=== PATIENT | male | born 1950 | race African-American/Black ===

== ENCOUNTER 2017-08-17 08:05 | Inpatient (IN) | payer MEDICARE, OTHER ==
[2017-08-17 08:51] LABS: ADD MAN DIFF? NO
[2017-08-17 08:56] LABS: BASOPHILS % 0.4 % (0.0-2.0); EOSINOPHILS # 0.2 10^3/ul (0.0-0.5); EOSINOPHILS % 2.4 % (0.0-7.0); HEMATOCRIT 34.8 % (42.0-52.0); HEMOGLOBIN 11.6 g/dl (14.0-18.0); LYMPHOCYTES # 1.4 10^3/ul (0.8-2.9); MEAN CORPUSCULAR HEMOGLOBIN 26.5 pg (29.0-33.0); MEAN CORPUSCULAR HGB CONC 33.3 g/dl (32.0-37.0); MEAN CORPUSCULAR VOLUME 79.6 fl (82.0-101.0); MONOCYTE # 0.5 10^3/ul (0.3-0.9); MONOCYTES % 7.5 % (0.0-11.0); NEUTROPHIL # 4.9 10^3/ul (1.6-7.5); NEUTROPHILS % 69.3 % (39.0-77.0); PLATELET COUNT 240 10^3/UL (140-415); RED BLOOD COUNT 4.37 10^6/ul (4.70-6.10); RED CELL DISTRIBUTION WIDTH 13.9 % (11.5-14.5)
[2017-08-17 09:15] LABS: ANION GAP 15 (8-16); BLOOD UREA NITROGEN 18 mg/dl (7-20); CALCIUM 9.4 mg/dl (8.4-10.2); CARBON DIOXIDE 35 mmol/L (21-31); CHLORIDE 95 mmol/L (97-110); CREATININE 3.42 mg/dl (0.61-1.24); GLUCOSE 112 mg/dl (70-220); POTASSIUM 3.5 mmol/L (3.5-5.1); SODIUM 141 mmol/L (135-144)
[2017-08-17 09:32] LABS: TROPONIN-I < 0.012 ng/ml (0.00-0.12)
[2017-08-17] MEDS ORDERED: ASPIRIN 81 MG TAB PO (13:30)
[2017-08-17] MEDS ORDERED: ONDANSETRON 4 MG INJ IV (13:30)
[2017-08-17] MEDS: ASPIRIN 81 MG TAB PO (13:47)
[2017-08-17] MEDS ORDERED: GLUCOSE GEL 15 GRAM TUBE PO ×2 (16:00)
[2017-08-17] MEDS ORDERED: NITROGLYCERIN AEROSOL (4.9 GM) SL (16:00)
[2017-08-17] MEDS ORDERED: GLUCAGON 1 MG INJ IM (16:00)
[2017-08-17] MEDS ORDERED: GLUCOSE GEL 15 GRAM TUBE BUCCAL (16:00)
[2017-08-17 16:12] LABS: CREATINE KINASE 106 IU/L (23-200)
[2017-08-17 16:20] LABS: CK INDEX 0.4
[2017-08-17 16:21] LABS: CK-MB 0.41 ng/ml (0.0-2.4); TROPONIN-I < 0.012 ng/ml (0.00-0.12)
[2017-08-17] MEDS ORDERED: INSULIN ASPART [NOVOLOG] 3 ML PEN SC (17:25)
[2017-08-17] MEDS: ACETAMINOPHEN 325 MG TAB PO ×2 (17:43→23:24)
[2017-08-17] MEDS: INSULIN ASPART [NOVOLOG] 3 ML PEN SC ×3 (18:51→21:39)
[2017-08-17] MEDS: ATORVASTATIN 10 MG TAB PO (21:35)
[2017-08-17] MEDS: FAMOTIDINE 20 MG TAB PO (21:35)
[2017-08-17] MEDS: ATORVASTATIN 40 MG TAB PO (21:35)
[2017-08-17] MEDS: INSULIN GLARGINE [LANtus] 3 ML PEN SC (21:38)
[2017-08-17 21:51] LABS: CREATINE KINASE 150 IU/L (23-200)
[2017-08-17 22:05] LABS: CK INDEX 0.3
[2017-08-17 22:07] LABS: CK-MB 0.42 ng/ml (0.0-2.4); TROPONIN-I < 0.012 ng/ml (0.00-0.12)
[2017-08-18] MEDS: ACCU-CHEK XX (02:00)
[2017-08-18 07:10] LABS: ALANINE AMINOTRANSFERASE 29 IU/L (13-69); ALBUMIN 3.7 g/dl (3.3-4.9); ALBUMIN/GLOBULIN RATIO 1.05; ALKALINE PHOSPHATASE 127 IU/L (42-121); ANION GAP 14 (8-16); ASPARTATE AMINO TRANSFERASE 27 IU/L (15-46); BLOOD UREA NITROGEN 27 mg/dl (7-20); CALCIUM 9.3 mg/dl (8.4-10.2); CARBON DIOXIDE 32 mmol/L (21-31); CHLORIDE 98 mmol/L (97-110); CHOL/HDL RATIO 3.5 RATIO; CHOLESTEROL 140 mg/dl (100-200); GLUCOSE 80 mg/dl (70-220); HDL CHOLESTEROL 40 mg/dl (30-78); LDL CHOLESTEROL,CALCULATED 72 mg/dl; POTASSIUM 3.8 mmol/L (3.5-5.1); SODIUM 140 mmol/L (135-144); TOTAL PROTEIN 7.2 g/dl (6.1-8.1); TRIGLYCERIDES 142 mg/dl (0-149)
[2017-08-18 07:21] LABS: HEMOGLOBIN A1C 11.4 % (0-5.9)
[2017-08-18] MEDS: INSULIN ASPART [NOVOLOG] 3 ML PEN SC ×7 (07:55→20:32)
[2017-08-18] MEDS: BENAZEPRIL 40 MG TAB PO (08:13)
[2017-08-18] MEDS: ASPIRIN 325 MG TAB PO (08:13)
[2017-08-18] MEDS ORDERED: ASPIRIN 325 MG TAB PO (09:00)
[2017-08-18] MEDS: morphine 2 MG INJ IV ×2 (09:28→16:35)
[2017-08-18] MEDS: MECLIZINE 12.5 MG TAB PO ×2 (14:40→20:29)
[2017-08-18] MEDS: ISOSORBIDE MONONITRATE(SR)30 MG TAB PO (14:40)
[2017-08-18] MEDS: ATORVASTATIN 40 MG TAB PO (20:29)
[2017-08-18] MEDS: ATORVASTATIN 10 MG TAB PO (20:29)
[2017-08-18] MEDS: FAMOTIDINE 20 MG TAB PO (20:30)
[2017-08-18] MEDS: INSULIN GLARGINE [LANtus] 3 ML PEN SC (20:48)
[2017-08-19] MEDS: ACCU-CHEK XX (02:00)
[2017-08-19 06:38] LABS: ADD MAN DIFF? NO
[2017-08-19 06:43] LABS: WHITE BLOOD COUNT 7.6 10^3/ul (4.8-10.8)
[2017-08-19 06:43] LABS: BASOPHILS % 0.4 % (0.0-2.0); EOSINOPHILS # 0.2 10^3/ul (0.0-0.5); EOSINOPHILS % 2.5 % (0.0-7.0); HEMATOCRIT 29.8 % (42.0-52.0); HEMOGLOBIN 9.9 g/dl (14.0-18.0); LYMPHOCYTES # 2.1 10^3/ul (0.8-2.9); LYMPHOCYTES % 27.1 % (15.0-51.0); MEAN CORPUSCULAR HEMOGLOBIN 26.8 pg (29.0-33.0); MEAN CORPUSCULAR HGB CONC 33.2 g/dl (32.0-37.0); MEAN CORPUSCULAR VOLUME 80.8 fl (82.0-101.0); MEAN PLATELET VOLUME 10.7 fl (7.4-10.4); MONOCYTE # 0.6 10^3/ul (0.3-0.9); MONOCYTES % 7.2 % (0.0-11.0); NEUTROPHIL # 4.8 10^3/ul (1.6-7.5); NEUTROPHILS % 62.4 % (39.0-77.0); PLATELET COUNT 229 10^3/UL (140-415); RED BLOOD COUNT 3.69 10^6/ul (4.70-6.10); RED CELL DISTRIBUTION WIDTH 14.2 % (11.5-14.5)
[2017-08-19 07:06] LABS: ANION GAP 16 (8-16); BLOOD UREA NITROGEN 41 mg/dl (7-20); CALCIUM 9.1 mg/dl (8.4-10.2); CARBON DIOXIDE 27 mmol/L (21-31); CHLORIDE 96 mmol/L (97-110); CREATININE 6.75 mg/dl (0.61-1.24); GLUCOSE 271 mg/dl (70-220); POTASSIUM 4.6 mmol/L (3.5-5.1); SODIUM 134 mmol/L (135-144)
[2017-08-19] MEDS: INSULIN ASPART [NOVOLOG] 3 ML PEN SC ×7 (07:25→20:45)
[2017-08-19] MEDS: MECLIZINE 12.5 MG TAB PO ×3 (08:54→20:30)
[2017-08-19] MEDS: ASPIRIN 81 MG TAB PO (08:54)
[2017-08-19] MEDS: ISOSORBIDE MONONITRATE(SR)30 MG TAB PO (08:55)
[2017-08-19] MEDS: BENAZEPRIL 40 MG TAB PO (08:55)
[2017-08-19] MEDS: morphine 2 MG INJ IV (09:00)
[2017-08-19] MEDS: BACLOFEN 10 MG TAB PO (20:30)
[2017-08-19] MEDS: ATORVASTATIN 10 MG TAB PO (20:30)
[2017-08-19] MEDS: FAMOTIDINE 20 MG TAB PO (20:30)
[2017-08-19] MEDS: ATORVASTATIN 40 MG TAB PO (20:30)
[2017-08-19] MEDS: INSULIN GLARGINE [LANtus] 3 ML PEN SC (20:45)
[2017-08-20] MEDS: morphine 2 MG INJ IV (01:02)
[2017-08-20] MEDS: ACCU-CHEK XX (02:00)
[2017-08-20 03:44] LABS: HEPATITIS B SURFACE ANTIGEN NEGATIVE (NEGATIVE)
[2017-08-20 04:01] LABS: HEPATITIS B SURFACE ANTIBODY POSITIVE (NEGATIVE)
[2017-08-20 07:08] LABS: ADD MAN DIFF? NO
[2017-08-20 07:11] LABS: BASOPHILS % 0.6 % (0.0-2.0); EOSINOPHILS # 0.2 10^3/ul (0.0-0.5); EOSINOPHILS % 3.2 % (0.0-7.0); HEMATOCRIT 32.8 % (42.0-52.0); LYMPHOCYTES # 1.6 10^3/ul (0.8-2.9); LYMPHOCYTES % 25.2 % (15.0-51.0); MEAN CORPUSCULAR HEMOGLOBIN 26.8 pg (29.0-33.0); MEAN CORPUSCULAR HGB CONC 33.5 g/dl (32.0-37.0); MEAN CORPUSCULAR VOLUME 79.8 fl (82.0-101.0); MEAN PLATELET VOLUME 10.1 fl (7.4-10.4); MONOCYTE # 0.6 10^3/ul (0.3-0.9); MONOCYTES % 9.2 % (0.0-11.0); NEUTROPHILS % 61.6 % (39.0-77.0); PLATELET COUNT 241 10^3/UL (140-415); RED BLOOD COUNT 4.11 10^6/ul (4.70-6.10); RED CELL DISTRIBUTION WIDTH 14.3 % (11.5-14.5)
[2017-08-20 07:11] LABS: WHITE BLOOD COUNT 6.5 10^3/ul (4.8-10.8)
[2017-08-20] MEDS: INSULIN ASPART [NOVOLOG] 3 ML PEN SC ×7 (07:55→21:00)
[2017-08-20] MEDS: ISOSORBIDE MONONITRATE(SR)30 MG TAB PO (08:14)
[2017-08-20] MEDS: MECLIZINE 12.5 MG TAB PO ×3 (08:14→22:12)
[2017-08-20] MEDS: BENAZEPRIL 40 MG TAB PO (08:15)
[2017-08-20] MEDS: ASPIRIN 81 MG TAB PO (08:15)
[2017-08-20] MEDS: BACLOFEN 10 MG TAB PO ×3 (08:15→22:12)
[2017-08-20 08:17] LABS: ANION GAP 16 (8-16); BLOOD UREA NITROGEN 29 mg/dl (7-20); CALCIUM 9.8 mg/dl (8.4-10.2); CARBON DIOXIDE 30 mmol/L (21-31); CHLORIDE 102 mmol/L (97-110); CREATININE 5.38 mg/dl (0.61-1.24); GLUCOSE 148 mg/dl (70-220); POTASSIUM 4.6 mmol/L (3.5-5.1); SODIUM 143 mmol/L (135-144)
[2017-08-20] MEDS: ATORVASTATIN 10 MG TAB PO (22:13)
[2017-08-20] MEDS: ATORVASTATIN 40 MG TAB PO (22:13)
[2017-08-20] MEDS: FAMOTIDINE 20 MG TAB PO (22:13)
[2017-08-20] MEDS: INSULIN GLARGINE [LANtus] 3 ML PEN SC (22:25)
[2017-08-21] MEDS: ACCU-CHEK XX (01:31)
[2017-08-21] MEDS: INSULIN ASPART [NOVOLOG] 3 ML PEN SC ×9 (07:25→22:52)
[2017-08-21] MEDS: MECLIZINE 12.5 MG TAB PO ×3 (09:36→23:10)
[2017-08-21] MEDS: BACLOFEN 10 MG TAB PO ×3 (09:36→22:44)
[2017-08-21] MEDS: ASPIRIN 81 MG TAB PO (09:36)
[2017-08-21] MEDS: BENAZEPRIL 40 MG TAB PO (09:36)
[2017-08-21] MEDS: ISOSORBIDE MONONITRATE(SR)30 MG TAB PO (09:36)
[2017-08-21] MEDS: ONDANSETRON 4 MG INJ IV (12:55)
[2017-08-21] MEDS: morphine 2 MG INJ IV (14:46)
[2017-08-21] MEDS ORDERED: POLYMYXIN/BACITRACIN 1L IRRIG (15:33)
[2017-08-21] MEDS ORDERED: HEPARIN 1000 UNITS/NS (A-LINE) 1,000 ML (16:28)
[2017-08-21] MEDS ORDERED: SOD CHLORIDE 0.9% 500 ML (16:29)
[2017-08-21] MEDS ORDERED: LIDOCAINE 1%/EPI 30 ML INJ (16:29)
[2017-08-21] MEDS ORDERED: IODIXANOL LOCM 50 ML BTL (16:29)
[2017-08-21] MEDS ORDERED: MIDAZOLAM 1 MG/ML 2 ML INJ (16:48)
[2017-08-21] MEDS ORDERED: FENTAnyl 50 MCG/ML VIAL (16:48)
[2017-08-21] MEDS ORDERED: CEFAZOLIN 2 GM/50 ML (PMX) 50 ML IVPB (16:52)
[2017-08-21] MEDS ORDERED: LIDOCAINE 2% (SDV) 5 ML INJ (17:11)
[2017-08-21] MEDS ORDERED: PROPOFOL 20 ML (17:11)
[2017-08-21] MEDS ORDERED: FENTAnyl 50 MCG/ML VIAL IV (18:00)
[2017-08-21] MEDS ORDERED: hydrALAzine 20 MG INJ IV (18:00)
[2017-08-21] MEDS ORDERED: ONDANSETRON 4 MG INJ IV (18:00)
[2017-08-21] MEDS ORDERED: HYDROmorphONE (0.2 MG/ML) 10ML SYG IV ×2 (18:00)
[2017-08-21] MEDS ORDERED: DIPHENHYDRAMINE 50 MG INJ IV (18:00)
[2017-08-21] MEDS ORDERED: METOCLOPRAMIDE 10 MG INJ IV (18:00)
[2017-08-21] MEDS ORDERED: MEPERIDINE 25 MG INJ IV (18:00)
[2017-08-21] MEDS ORDERED: LABETALOL HCL 20MG INJ (20:04)
[2017-08-21] MEDS: LABETALOL HCL 20MG INJ IV (20:20)
[2017-08-21 20:31] LABS: AADO2 Arterial 26.7 mmHg (7.0-24.0); Allen Test ACCEPTAB; Arterial Base Excess -5.3 mmol/L (-3.0-3); Arterial Blood Gas Oxygen Sat 98.6 mmHG (95.0-98.0); Arterial COHb 0 % (0.0-3.0); Arterial Fraction of Oxyhgb 98.3 % (93.0-99.0); Arterial MetHb 0.3 % (0.0-1.5); Arterial Total Hemglobin 12.8 g/dl (12.0-18.0); Arterial pCO2 38.2 mmhg (35-45); MODE NASAL CANNULA; Site Right Radial
[2017-08-21] MEDS: ATORVASTATIN 10 MG TAB PO (22:44)
[2017-08-21] MEDS: ATORVASTATIN 40 MG TAB PO (22:44)
[2017-08-21] MEDS: FAMOTIDINE 20 MG TAB PO (22:44)
[2017-08-21] MEDS: INSULIN GLARGINE [LANtus] 3 ML PEN SC (22:49)
[2017-08-22] MEDS: HALOPERIDOL 5 MG INJ IM (01:03)
[2017-08-22] MEDS: ACCU-CHEK XX (02:00)
[2017-08-22] MEDS: LORAZEPAM 2 MG INJ IV (02:55)
[2017-08-22] MEDS: INSULIN ASPART [NOVOLOG] 3 ML PEN SC ×8 (02:59→20:31)
[2017-08-22 06:32] LABS: ADD MAN DIFF? NO
[2017-08-22 06:41] LABS: BASOPHILS % 0.2 % (0.0-2.0); EOSINOPHILS # 0.1 10^3/ul (0.0-0.5); EOSINOPHILS % 0.4 % (0.0-7.0); HEMATOCRIT 36.1 % (42.0-52.0); HEMOGLOBIN 11.9 g/dl (14.0-18.0); LYMPHOCYTES # 2.1 10^3/ul (0.8-2.9); LYMPHOCYTES % 9.9 % (15.0-51.0); MEAN CORPUSCULAR HEMOGLOBIN 26.4 pg (29.0-33.0); MEAN CORPUSCULAR VOLUME 80.2 fl (82.0-101.0); MEAN PLATELET VOLUME 10.3 fl (7.4-10.4); MONOCYTE # 1.1 10^3/ul (0.3-0.9); MONOCYTES % 5.4 % (0.0-11.0); NEUTROPHIL # 17.8 10^3/ul (1.6-7.5); NEUTROPHILS % 83.7 % (39.0-77.0); PLATELET COUNT 335 10^3/UL (140-415); RED CELL DISTRIBUTION WIDTH 14.6 % (11.5-14.5)
[2017-08-22 06:41] LABS: WHITE BLOOD COUNT 21.2 10^3/ul (4.8-10.8)
[2017-08-22 07:13] LABS: ANION GAP 22 (8-16); BLOOD UREA NITROGEN 56 mg/dl (7-20); CALCIUM 10.1 mg/dl (8.4-10.2); CARBON DIOXIDE 24 mmol/L (21-31); CHLORIDE 100 mmol/L (97-110); GLUCOSE 263 mg/dl (70-220); POTASSIUM 4.7 mmol/L (3.5-5.1); SODIUM 141 mmol/L (135-144)
[2017-08-22] MEDS: BENAZEPRIL 40 MG TAB PO (08:04)
[2017-08-22] MEDS: ISOSORBIDE MONONITRATE(SR)30 MG TAB PO (08:04)
[2017-08-22] MEDS: MECLIZINE 12.5 MG TAB PO ×3 (08:04→20:44)
[2017-08-22] MEDS: BACLOFEN 10 MG TAB PO ×3 (08:04→20:43)
[2017-08-22] MEDS: ASPIRIN 81 MG TAB PO (08:04)
[2017-08-22] MEDS ORDERED: LIDOCAINE 1% (MDV) 20 ML INJ (15:15)
[2017-08-22] MEDS ORDERED: morphine LIQ (10 MG/5 ML) CUP PO (16:30)
[2017-08-22] MEDS: INSULIN GLARGINE [LANtus] 3 ML PEN SC (20:33)
[2017-08-22] MEDS: FAMOTIDINE 20 MG TAB PO (20:43)
[2017-08-22] MEDS: ATORVASTATIN 40 MG TAB PO (20:43)
[2017-08-22] MEDS: ATORVASTATIN 10 MG TAB PO (20:44)
[2017-08-23] MEDS: LORAZEPAM 2 MG INJ IV ×2 (00:44→19:36)
[2017-08-23] MEDS: ACCU-CHEK XX (02:00)
[2017-08-23 07:26] LABS: ADD MAN DIFF? NO
[2017-08-23 07:28] LABS: BASOPHIL # 0.1 10^3/ul (0.0-0.1); BASOPHILS % 0.3 % (0.0-2.0); EOSINOPHILS # 0.2 10^3/ul (0.0-0.5); EOSINOPHILS % 1.4 % (0.0-7.0); HEMOGLOBIN 12.2 g/dl (14.0-18.0); LYMPHOCYTES # 1.8 10^3/ul (0.8-2.9); LYMPHOCYTES % 11.8 % (15.0-51.0); MEAN CORPUSCULAR HEMOGLOBIN 26.3 pg (29.0-33.0); MEAN CORPUSCULAR VOLUME 79.9 fl (82.0-101.0); MEAN PLATELET VOLUME 10.4 fl (7.4-10.4); MONOCYTE # 1.1 10^3/ul (0.3-0.9); MONOCYTES % 7.5 % (0.0-11.0); NEUTROPHIL # 11.9 10^3/ul (1.6-7.5); NEUTROPHILS % 78.7 % (39.0-77.0); PLATELET COUNT 288 10^3/UL (140-415); RED BLOOD COUNT 4.63 10^6/ul (4.70-6.10); RED CELL DISTRIBUTION WIDTH 14.7 % (11.5-14.5)
[2017-08-23 07:28] LABS: WHITE BLOOD COUNT 15.2 10^3/ul (4.8-10.8)
[2017-08-23 08:11] LABS: ANION GAP 20 (8-16); BLOOD UREA NITROGEN 44 mg/dl (7-20); CALCIUM 10.2 mg/dl (8.4-10.2); CARBON DIOXIDE 27 mmol/L (21-31); CHLORIDE 97 mmol/L (97-110); CREATININE 7.45 mg/dl (0.61-1.24); GLUCOSE 212 mg/dl (70-220); POTASSIUM 5.2 mmol/L (3.5-5.1); SODIUM 139 mmol/L (135-144)
[2017-08-23] MEDS: MECLIZINE 12.5 MG TAB PO ×3 (08:15→20:16)
[2017-08-23] MEDS: ASPIRIN 81 MG TAB PO (08:15)
[2017-08-23] MEDS: BACLOFEN 10 MG TAB PO ×3 (08:16→20:15)
[2017-08-23] MEDS: BENAZEPRIL 40 MG TAB PO (08:17)
[2017-08-23] MEDS: ISOSORBIDE MONONITRATE(SR)30 MG TAB PO (08:17)
[2017-08-23] MEDS: INSULIN ASPART [NOVOLOG] 3 ML PEN SC ×7 (08:50→20:17)
[2017-08-23] MEDS ORDERED: hydrALAzine 20 MG INJ IV (15:30)
[2017-08-23] MEDS: CEFTRIAXONE 1 GM/50 ML (PMX) 50 ML IVPB (16:52)
[2017-08-23] MEDS: ATORVASTATIN 10 MG TAB PO (20:15)
[2017-08-23] MEDS: NA POLYST SULFON 15 GM/60 ML BTL PO (20:15)
[2017-08-23] MEDS: ATORVASTATIN 40 MG TAB PO (20:15)
[2017-08-23] MEDS: FAMOTIDINE 20 MG TAB PO (20:16)
[2017-08-23] MEDS: BENAZEPRIL 20 MG TAB PO (20:16)
[2017-08-23] MEDS: INSULIN GLARGINE [LANtus] 3 ML PEN SC (20:24)
[2017-08-24] MEDS: ACCU-CHEK XX (02:00)
[2017-08-24 07:45] LABS: ADD MAN DIFF? NO
[2017-08-24 07:55] LABS: BASOPHIL # 0.1 10^3/ul (0.0-0.1); BASOPHILS % 0.5 % (0.0-2.0); EOSINOPHILS # 0.2 10^3/ul (0.0-0.5); EOSINOPHILS % 1.6 % (0.0-7.0); HEMATOCRIT 36.7 % (42.0-52.0); LYMPHOCYTES # 1.5 10^3/ul (0.8-2.9); MEAN CORPUSCULAR HEMOGLOBIN 26.2 pg (29.0-33.0); MEAN CORPUSCULAR HGB CONC 32.7 g/dl (32.0-37.0); MEAN CORPUSCULAR VOLUME 80.1 fl (82.0-101.0); MEAN PLATELET VOLUME 10.7 fl (7.4-10.4); MONOCYTE # 1.2 10^3/ul (0.3-0.9); NEUTROPHILS % 79.6 % (39.0-77.0); PLATELET COUNT 289 10^3/UL (140-415); RED BLOOD COUNT 4.58 10^6/ul (4.70-6.10); RED CELL DISTRIBUTION WIDTH 14.1 % (11.5-14.5)
[2017-08-24 08:13] LABS: ANION GAP 24 (8-16); BLOOD UREA NITROGEN 60 mg/dl (7-20); CALCIUM 9.7 mg/dl (8.4-10.2); CARBON DIOXIDE 25 mmol/L (21-31); CHLORIDE 96 mmol/L (97-110); CREATININE 9.75 mg/dl (0.61-1.24); GLUCOSE 224 mg/dl (70-220); POTASSIUM 4.7 mmol/L (3.5-5.1); SODIUM 140 mmol/L (135-144)
[2017-08-24] MEDS: INSULIN ASPART [NOVOLOG] 3 ML PEN SC ×7 (08:29→21:31)
[2017-08-24] MEDS: ISOSORBIDE MONONITRATE(SR)30 MG TAB PO ×2 (09:00→17:45)
[2017-08-24] MEDS: BENAZEPRIL 40 MG TAB PO (09:00)
[2017-08-24] MEDS: ASPIRIN 81 MG TAB PO (09:00)
[2017-08-24] MEDS: PIPER-TAZO 2.25 GM (PMX) 50 ML IVPB ×2 (16:48→22:19)
[2017-08-24] MEDS: ATORVASTATIN 10 MG TAB PO (21:15)
[2017-08-24] MEDS: ATORVASTATIN 40 MG TAB PO (21:15)
[2017-08-24] MEDS: INSULIN GLARGINE [LANtus] 3 ML PEN SC (21:31)
[2017-08-25] MEDS: ACCU-CHEK XX (02:00)
[2017-08-25] MEDS: PIPER-TAZO 2.25 GM (PMX) 50 ML IVPB ×3 (06:19→22:51)
[2017-08-25 07:44] LABS: ADD MAN DIFF? NO
[2017-08-25 07:49] LABS: WHITE BLOOD COUNT 17.4 10^3/ul (4.8-10.8)
[2017-08-25 07:49] LABS: ABNORMAL IP MESSAGE 1; BASOPHIL # 0.1 10^3/ul (0.0-0.1); BASOPHILS % 0.7 % (0.0-2.0); EOSINOPHILS # 0.1 10^3/ul (0.0-0.5); EOSINOPHILS % 0.5 % (0.0-7.0); HEMATOCRIT 40.7 % (42.0-52.0); HEMOGLOBIN 13.1 g/dl (14.0-18.0); LYMPHOCYTES # 2.5 10^3/ul (0.8-2.9); LYMPHOCYTES % 14.1 % (15.0-51.0); MEAN CORPUSCULAR HEMOGLOBIN 26.3 pg (29.0-33.0); MEAN CORPUSCULAR HGB CONC 32.2 g/dl (32.0-37.0); MEAN CORPUSCULAR VOLUME 81.6 fl (82.0-101.0); MEAN PLATELET VOLUME 10.5 fl (7.4-10.4); MONOCYTE # 1.8 10^3/ul (0.3-0.9); MONOCYTES % 10.1 % (0.0-11.0); NEUTROPHIL # 12.9 10^3/ul (1.6-7.5); NEUTROPHILS % 74.1 % (39.0-77.0); PLATELET COUNT 370 10^3/UL (140-415); POSITIVE DIFF @See below; RED BLOOD COUNT 4.99 10^6/ul (4.70-6.10); RED CELL DISTRIBUTION WIDTH 14.4 % (11.5-14.5)
[2017-08-25] MEDS: INSULIN ASPART [NOVOLOG] 3 ML PEN SC ×7 (07:55→20:33)
[2017-08-25] MEDS: ASPIRIN 81 MG TAB PO (08:06)
[2017-08-25 08:13] LABS: ALANINE AMINOTRANSFERASE 23 IU/L (13-69); ALBUMIN 4.6 g/dl (3.3-4.9); ALBUMIN/GLOBULIN RATIO 1.43; ALKALINE PHOSPHATASE 139 IU/L (42-121); ANION GAP 31 (8-16); ASPARTATE AMINO TRANSFERASE 37 IU/L (15-46); BILIRUBIN,INDIRECT 0.1 mg/dl (0-1.1); BILIRUBIN,TOTAL 0.1 mg/dl (0.2-1.3); BLOOD UREA NITROGEN 59 mg/dl (7-20); CALCIUM 10.2 mg/dl (8.4-10.2); CARBON DIOXIDE 23 mmol/L (21-31); CHLORIDE 95 mmol/L (97-110); CREATININE 9.94 mg/dl (0.61-1.24); GLUCOSE 268 mg/dl (70-220); SODIUM 143 mmol/L (135-144); TOTAL PROTEIN 7.8 g/dl (6.1-8.1)
[2017-08-25 08:17] LABS: AMMONIA < 9 umol/l (9-30)
[2017-08-25 08:18] LABS: POTASSIUM 6.3 mmol/L (3.5-5.1)
[2017-08-25] MEDS ORDERED: BENAZEPRIL 40 MG TAB PO (09:00)
[2017-08-25] MEDS: ISOSORBIDE MONONITRATE(SR)30 MG TAB PO (09:00)
[2017-08-25] MEDS ORDERED: hydrALAzine 20 MG INJ IV (09:00)
[2017-08-25] MEDS ORDERED: BENAZEPRIL 20 MG TAB PO (09:00)
[2017-08-25] MEDS: NA POLYST SULFON 15 GM/60 ML BTL PO (09:00)
[2017-08-25] MEDS: METOPROLOL 25 MG TAB PO ×2 (09:00→20:16)
[2017-08-25] MEDS: DEXTROSE 5%-0.45% NACL 1,000 ML IV (13:00)
[2017-08-25] MEDS: ALBUTEROL 0.083% (NEB) 2.5 MG/3 ML AMP HHN (13:34)
[2017-08-25] MEDS ORDERED: VANCOMYCIN IV PER PHARMACY XX ×2 (15:00)
[2017-08-25 15:47] LABS: ANION GAP 30 (8-16); BLOOD UREA NITROGEN 69 mg/dl (7-20); CALCIUM 10.6 mg/dl (8.4-10.2); CARBON DIOXIDE 25 mmol/L (21-31); CHLORIDE 97 mmol/L (97-110); CREATININE 11.83 mg/dl (0.61-1.24); GLUCOSE 223 mg/dl (70-220); POTASSIUM 4.9 mmol/L (3.5-5.1); SODIUM 147 mmol/L (135-144)
[2017-08-25 15:49] LABS: LACTIC ACID 3.5 mmol/L (0.5-2.0)
[2017-08-25 16:25] LABS: HIV 1&2 ANTIBODY NEGATIVE (NEGATIVE)
[2017-08-25] MEDS: VANCOMYCIN 2 GM in DEXTROSE 5% 500 ML IVPB (17:39)
[2017-08-25] MEDS: SOD CHLORIDE 0.9% 250 ML IV (17:39)
[2017-08-25] MEDS: ATORVASTATIN 40 MG TAB PO (20:17)
[2017-08-25] MEDS: INSULIN GLARGINE [LANtus] 3 ML PEN SC (20:32)
[2017-08-25 20:54] LABS: ANION GAP 28 (8-16); BLOOD UREA NITROGEN 75 mg/dl (7-20); CALCIUM 9.7 mg/dl (8.4-10.2); CARBON DIOXIDE 22 mmol/L (21-31); CHLORIDE 96 mmol/L (97-110); CREATININE 11.62 mg/dl (0.61-1.24); GLUCOSE 289 mg/dl (70-220); POTASSIUM 5.2 mmol/L (3.5-5.1); SODIUM 141 mmol/L (135-144)
[2017-08-26] MEDS: ACCU-CHEK XX (02:00)
[2017-08-26] MEDS: PIPER-TAZO 2.25 GM (PMX) 50 ML IVPB ×2 (05:31→13:31)
[2017-08-26] MEDS: INSULIN ASPART [NOVOLOG] 3 ML PEN SC ×7 (08:14→20:53)
[2017-08-26 08:16] LABS: ADD MAN DIFF? NO
[2017-08-26 08:27] LABS: ABNORMAL IP MESSAGE 1; BASOPHIL # 0.1 10^3/ul (0.0-0.1); BASOPHILS % 0.6 % (0.0-2.0); EOSINOPHILS # 0.3 10^3/ul (0.0-0.5); EOSINOPHILS % 1.3 % (0.0-7.0); HEMOGLOBIN 12.6 g/dl (14.0-18.0); LYMPHOCYTES # 2.4 10^3/ul (0.8-2.9); LYMPHOCYTES % 10.9 % (15.0-51.0); MEAN CORPUSCULAR HEMOGLOBIN 26.5 pg (29.0-33.0); MEAN CORPUSCULAR HGB CONC 33.2 g/dl (32.0-37.0); MEAN CORPUSCULAR VOLUME 79.8 fl (82.0-101.0); MEAN PLATELET VOLUME 10.6 fl (7.4-10.4); NEUTROPHIL # 17.3 10^3/ul (1.6-7.5); NEUTROPHILS % 77.7 % (39.0-77.0); PLATELET COUNT 361 10^3/UL (140-415); POSITIVE DIFF @See below; RED BLOOD COUNT 4.76 10^6/ul (4.70-6.10); RED CELL DISTRIBUTION WIDTH 14.1 % (11.5-14.5)
[2017-08-26 08:27] LABS: WHITE BLOOD COUNT 22.3 10^3/ul (4.8-10.8)
[2017-08-26] MEDS: ASPIRIN 81 MG TAB PO (09:23)
[2017-08-26] MEDS: ISOSORBIDE MONONITRATE(SR)30 MG TAB PO (09:24)
[2017-08-26] MEDS: METOPROLOL 25 MG TAB PO (09:24)
[2017-08-26] MEDS: SOD CHLORIDE 0.9% 1,000 ML IV (13:30)
[2017-08-26 14:35] LABS: ADD MAN DIFF? NO
[2017-08-26 14:37] LABS: WHITE BLOOD COUNT 22.9 10^3/ul (4.8-10.8)
[2017-08-26 14:37] LABS: ABNORMAL IP MESSAGE 1; BASOPHIL # 0.1 10^3/ul (0.0-0.1); BASOPHILS % 0.4 % (0.0-2.0); EOSINOPHILS # 0.3 10^3/ul (0.0-0.5); EOSINOPHILS % 1.1 % (0.0-7.0); HEMATOCRIT 38.2 % (42.0-52.0); HEMOGLOBIN 12.4 g/dl (14.0-18.0); LYMPHOCYTES # 2.4 10^3/ul (0.8-2.9); LYMPHOCYTES % 10.7 % (15.0-51.0); MEAN CORPUSCULAR HEMOGLOBIN 26.2 pg (29.0-33.0); MEAN CORPUSCULAR HGB CONC 32.5 g/dl (32.0-37.0); MEAN CORPUSCULAR VOLUME 80.8 fl (82.0-101.0); MEAN PLATELET VOLUME 10.1 fl (7.4-10.4); MONOCYTE # 1.8 10^3/ul (0.3-0.9); NEUTROPHIL # 18.1 10^3/ul (1.6-7.5); NEUTROPHILS % 79.3 % (39.0-77.0); PLATELET COUNT 366 10^3/UL (140-415); POSITIVE DIFF @See below; RED BLOOD COUNT 4.73 10^6/ul (4.70-6.10); RED CELL DISTRIBUTION WIDTH 14.2 % (11.5-14.5)
[2017-08-26 14:58] LABS: LACTIC ACID 1.9 mmol/L (0.5-2.0)
[2017-08-26 15:26] LABS: ALANINE AMINOTRANSFERASE 16 IU/L (13-69); ALBUMIN 4.4 g/dl (3.3-4.9); ALKALINE PHOSPHATASE 121 IU/L (42-121); ANION GAP 28 (8-16); ASPARTATE AMINO TRANSFERASE 41 IU/L (15-46); BILIRUBIN,INDIRECT 0.2 mg/dl (0-1.1); BILIRUBIN,TOTAL 0.2 mg/dl (0.2-1.3); BLOOD UREA NITROGEN 89 mg/dl (7-20); CALCIUM 10.3 mg/dl (8.4-10.2); CARBON DIOXIDE 22 mmol/L (21-31); CHLORIDE 100 mmol/L (97-110); GLUCOSE 97 mg/dl (70-220); POTASSIUM 4.7 mmol/L (3.5-5.1); SODIUM 145 mmol/L (135-144); TOTAL PROTEIN 8.8 g/dl (6.1-8.1)
[2017-08-26 15:36] LABS: CREATININE 12.78 mg/dl (0.61-1.24)
[2017-08-26 15:45] LABS: AADO2 Arterial 17.7 mmHg (7.0-24.0); Allen Test ACCEPTAB; Arterial Base Excess -2.7 mmol/L (-3.0-3); Arterial Blood Gas Oxygen Sat 98.9 mmHG (95.0-98.0); Arterial COHb 0.1 % (0.0-3.0); Arterial Fraction of Oxyhgb 98.5 % (93.0-99.0); Arterial HCO3 20.7 mmol/L (22.0-26.0); Arterial MetHb 0.3 % (0.0-1.5); Arterial Total Hemglobin 14.2 g/dl (12.0-18.0); Arterial pCO2 32.2 mmhg (35-45); MODE NASAL CANNULA; Site Right Radial
[2017-08-26] MEDS: MIDODRINE 5 MG TAB PO (17:19)
[2017-08-26] MEDS: DEXTROSE 50% 50 ML SYRINGE IV (17:35)
[2017-08-26 18:37] LABS: LACTIC ACID 1.6 mmol/L (0.5-2.0)
[2017-08-26 18:49] LABS: TROPONIN-I 0.044 ng/ml (0.00-0.12)
[2017-08-26 19:12] LABS: B-TYPE NATRIURETIC PEPTIDE 957 PG/ML (0-125)
[2017-08-26] MEDS: ATORVASTATIN 40 MG TAB PO (20:51)
[2017-08-26] MEDS: NORepinephrine 8MG/250 ML (PMX 250 ML IV (22:16)
[2017-08-26] MEDS: MEROPENEM 500MG/50 ML (PMX) 50 ML IVPB (22:20)
[2017-08-26] MEDS: INSULIN GLARGINE [LANtus] 3 ML PEN SC (22:56)
[2017-08-27 01:20] LABS: TROPONIN-I 0.051 ng/ml (0.00-0.12)
[2017-08-27] MEDS: ACCU-CHEK XX (01:59)
[2017-08-27 05:10] LABS: ADD MAN DIFF? NO
[2017-08-27 05:23] LABS: ABNORMAL IP MESSAGE 1; BASOPHIL # 0.1 10^3/ul (0.0-0.1); BASOPHILS % 0.4 % (0.0-2.0); EOSINOPHILS # 0.3 10^3/ul (0.0-0.5); HEMATOCRIT 34.4 % (42.0-52.0); HEMOGLOBIN 11.5 g/dl (14.0-18.0); LYMPHOCYTES # 1.9 10^3/ul (0.8-2.9); LYMPHOCYTES % 7.2 % (15.0-51.0); MEAN CORPUSCULAR HEMOGLOBIN 26.5 pg (29.0-33.0); MEAN CORPUSCULAR HGB CONC 33.4 g/dl (32.0-37.0); MEAN CORPUSCULAR VOLUME 79.3 fl (82.0-101.0); MEAN PLATELET VOLUME 10.7 fl (7.4-10.4); MONOCYTE # 2.3 10^3/ul (0.3-0.9); MONOCYTES % 8.9 % (0.0-11.0); NEUTROPHIL # 21.5 10^3/ul (1.6-7.5); NEUTROPHILS % 81.9 % (39.0-77.0); PLATELET COUNT 348 10^3/UL (140-415); POSITIVE DIFF @See below; RED BLOOD COUNT 4.34 10^6/ul (4.70-6.10); RED CELL DISTRIBUTION WIDTH 14.1 % (11.5-14.5)
[2017-08-27 05:23] LABS: WHITE BLOOD COUNT 26.3 10^3/ul (4.8-10.8)
[2017-08-27 05:59] LABS: TROPONIN-I 0.046 ng/ml (0.00-0.12)
[2017-08-27 06:01] LABS: VANCOMYCIN,RANDOM 24.2 ug/ml
[2017-08-27 07:36] LABS: ANION GAP 31 (8-16); BLOOD UREA NITROGEN 97 mg/dl (7-20); CALCIUM 9.5 mg/dl (8.4-10.2); CARBON DIOXIDE 19 mmol/L (21-31); CHLORIDE 100 mmol/L (97-110); GLUCOSE 170 mg/dl (70-220); POTASSIUM 4.8 mmol/L (3.5-5.1); SODIUM 145 mmol/L (135-144)
[2017-08-27 07:47] LABS: CREATININE 14.66 mg/dl (0.61-1.24)
[2017-08-27] MEDS: ISOSORBIDE MONONITRATE(SR)30 MG TAB PO (08:05)
[2017-08-27] MEDS: ASPIRIN 81 MG TAB PO (08:05)
[2017-08-27] MEDS: INSULIN ASPART [NOVOLOG] 3 ML PEN SC ×7 (08:07→21:00)
[2017-08-27 13:54] LABS: TROPONIN-I 0.039 ng/ml (0.00-0.12)
[2017-08-27] MEDS: DEXTROSE 5%-0.45% NACL 1,000 ML IV (13:56)
[2017-08-27] MEDS: ALBUMIN HUMAN 25% 100 ML IV (13:57)
[2017-08-27 19:04] LABS: TROPONIN-I 0.041 ng/ml (0.00-0.12)
[2017-08-27] MEDS: ATORVASTATIN 40 MG TAB PO (21:21)
[2017-08-27] MEDS: MEROPENEM 500MG/50 ML (PMX) 50 ML IVPB (21:21)
[2017-08-27] MEDS: INSULIN GLARGINE [LANtus] 3 ML PEN SC (21:24)
[2017-08-28] MEDS: ACCU-CHEK XX ×2 (01:11→21:57)
[2017-08-28 01:31] LABS: TROPONIN-I 0.077 ng/ml (0.00-0.12)
[2017-08-28] MEDS: ASPIRIN 81 MG TAB PO (08:32)
[2017-08-28] MEDS: INSULIN ASPART [NOVOLOG] 3 ML PEN SC ×7 (08:38→21:00)
[2017-08-28 08:54] LABS: ALANINE AMINOTRANSFERASE 18 IU/L (13-69); ALBUMIN 4.1 g/dl (3.3-4.9); ALBUMIN/GLOBULIN RATIO 1.24; ALKALINE PHOSPHATASE 109 IU/L (42-121); ANION GAP 30 (8-16); ASPARTATE AMINO TRANSFERASE 20 IU/L (15-46); BLOOD UREA NITROGEN 114 mg/dl (7-20); CALCIUM 9.3 mg/dl (8.4-10.2); CARBON DIOXIDE 18 mmol/L (21-31); CHLORIDE 97 mmol/L (97-110); GLUCOSE 190 mg/dl (70-220); SODIUM 141 mmol/L (135-144); TOTAL PROTEIN 7.4 g/dl (6.1-8.1)
[2017-08-28 09:03] LABS: CREATININE 16.08 mg/dl (0.61-1.24)
[2017-08-28] MEDS: DEXTROSE 5%-0.45% NACL 1,000 ML IV (13:30)
[2017-08-28 17:07] LABS: ALANINE AMINOTRANSFERASE 17 IU/L (13-69); ALBUMIN 4.6 g/dl (3.3-4.9); ALBUMIN/GLOBULIN RATIO 1.21; ALKALINE PHOSPHATASE 118 IU/L (42-121); ANION GAP 29 (8-16); ASPARTATE AMINO TRANSFERASE 25 IU/L (15-46); BLOOD UREA NITROGEN 118 mg/dl (7-20); CALCIUM 9.5 mg/dl (8.4-10.2); CARBON DIOXIDE 21 mmol/L (21-31); CHLORIDE 94 mmol/L (97-110); GLUCOSE 80 mg/dl (70-220); SODIUM 140 mmol/L (135-144); TOTAL PROTEIN 8.4 g/dl (6.1-8.1)
[2017-08-28 17:14] LABS: CREATININE 15.52 mg/dl (0.61-1.24)
[2017-08-28] MEDS: DEXTROSE 50% 50 ML SYRINGE IV (18:38)
[2017-08-28] MEDS: MEROPENEM 500MG/50 ML (PMX) 50 ML IVPB (21:30)
[2017-08-28] MEDS: ATORVASTATIN 40 MG TAB PO (21:30)
[2017-08-28] MEDS: INSULIN GLARGINE [LANtus] 3 ML PEN SC (21:52)
[2017-08-29] MEDS: DEXTROSE 5%-0.45% NACL 1,000 ML IV (01:14)
[2017-08-29] MEDS: ACETAMINOPHEN 325 MG TAB PO ×2 (03:52→17:45)
[2017-08-29] MEDS: VANCOMYCIN 1.25 GM in SOD CHLORIDE 0.45% 250 ML IVPB (05:59)
[2017-08-29] MEDS: INSULIN ASPART [NOVOLOG] 3 ML PEN SC ×7 (07:40→20:28)
[2017-08-29] MEDS: ASPIRIN 81 MG TAB PO (08:03)
[2017-08-29 08:32] LABS: ADD MAN DIFF? NO
[2017-08-29 08:38] LABS: BASOPHIL # 0.1 10^3/ul (0.0-0.1); BASOPHILS % 0.5 % (0.0-2.0); EOSINOPHILS # 0.3 10^3/ul (0.0-0.5); EOSINOPHILS % 2.2 % (0.0-7.0); HEMATOCRIT 34.1 % (42.0-52.0); HEMOGLOBIN 11.5 g/dl (14.0-18.0); LYMPHOCYTES % 12.5 % (15.0-51.0); MEAN CORPUSCULAR HEMOGLOBIN 26.6 pg (29.0-33.0); MEAN CORPUSCULAR HGB CONC 33.7 g/dl (32.0-37.0); MEAN CORPUSCULAR VOLUME 78.8 fl (82.0-101.0); MEAN PLATELET VOLUME 10.3 fl (7.4-10.4); MONOCYTE # 1.4 10^3/ul (0.3-0.9); NEUTROPHIL # 11.7 10^3/ul (1.6-7.5); NEUTROPHILS % 74.5 % (39.0-77.0); PLATELET COUNT 346 10^3/UL (140-415); RED BLOOD COUNT 4.33 10^6/ul (4.70-6.10); RED CELL DISTRIBUTION WIDTH 13.9 % (11.5-14.5)
[2017-08-29 08:38] LABS: WHITE BLOOD COUNT 15.7 10^3/ul (4.8-10.8)
[2017-08-29 09:28] LABS: AMMONIA 21 umol/l (9-30)
[2017-08-29] MEDS: DEXTROSE 50% 50 ML SYRINGE IV (12:00)
[2017-08-29] MEDS: MIDODRINE 5 MG TAB PO (12:48)
[2017-08-29 15:47] LABS: PROCALCITONIN 2.15 ng/mL (<0.10)
[2017-08-29] MEDS: MEROPENEM 500MG/50 ML (PMX) 50 ML IVPB (20:10)
[2017-08-29] MEDS: INSULIN GLARGINE [LANtus] 3 ML PEN SC (20:35)
[2017-08-29] MEDS: ATORVASTATIN 40 MG TAB PO (20:40)
[2017-08-30] MEDS: ACCU-CHEK XX (02:00)
[2017-08-30] MEDS: DEXTROSE 5%-0.45% NACL 1,000 ML IV (05:56)
[2017-08-30] MEDS: INSULIN ASPART [NOVOLOG] 3 ML PEN SC ×7 (07:55→21:00)
[2017-08-30 08:45] LABS: ADD MAN DIFF? NO
[2017-08-30] MEDS: ASPIRIN 81 MG TAB PO (08:46)
[2017-08-30 08:51] LABS: WHITE BLOOD COUNT 12.2 10^3/ul (4.8-10.8)
[2017-08-30 08:51] LABS: BASOPHIL # 0.1 10^3/ul (0.0-0.1); BASOPHILS % 0.6 % (0.0-2.0); EOSINOPHILS # 0.3 10^3/ul (0.0-0.5); HEMATOCRIT 32.1 % (42.0-52.0); HEMOGLOBIN 11.1 g/dl (14.0-18.0); LYMPHOCYTES # 1.9 10^3/ul (0.8-2.9); LYMPHOCYTES % 15.5 % (15.0-51.0); MEAN CORPUSCULAR HEMOGLOBIN 27.2 pg (29.0-33.0); MEAN CORPUSCULAR HGB CONC 34.6 g/dl (32.0-37.0); MEAN CORPUSCULAR VOLUME 78.7 fl (82.0-101.0); MEAN PLATELET VOLUME 10.1 fl (7.4-10.4); MONOCYTE # 1.1 10^3/ul (0.3-0.9); MONOCYTES % 8.8 % (0.0-11.0); NEUTROPHIL # 8.8 10^3/ul (1.6-7.5); PLATELET COUNT 351 10^3/UL (140-415); RED BLOOD COUNT 4.08 10^6/ul (4.70-6.10); RED CELL DISTRIBUTION WIDTH 13.5 % (11.5-14.5)
[2017-08-30] MEDS: ATORVASTATIN 40 MG TAB PO (21:41)
[2017-08-30] MEDS: INSULIN GLARGINE [LANtus] 3 ML PEN SC (21:47)
[2017-08-30] MEDS: MEROPENEM 500MG/50 ML (PMX) 50 ML IVPB (22:58)
[2017-08-31] MEDS: ACCU-CHEK XX (02:00)
[2017-08-31 07:20] LABS: ADD MAN DIFF? NO
[2017-08-31 07:30] LABS: WHITE BLOOD COUNT 9.9 10^3/ul (4.8-10.8)
[2017-08-31 07:30] LABS: BASOPHIL # 0.1 10^3/ul (0.0-0.1); BASOPHILS % 0.7 % (0.0-2.0); EOSINOPHILS # 0.4 10^3/ul (0.0-0.5); EOSINOPHILS % 3.5 % (0.0-7.0); HEMATOCRIT 31.3 % (42.0-52.0); HEMOGLOBIN 10.3 g/dl (14.0-18.0); MEAN CORPUSCULAR HEMOGLOBIN 26.1 pg (29.0-33.0); MEAN CORPUSCULAR HGB CONC 32.9 g/dl (32.0-37.0); MEAN CORPUSCULAR VOLUME 79.2 fl (82.0-101.0); MEAN PLATELET VOLUME 10.1 fl (7.4-10.4); MONOCYTE # 0.9 10^3/ul (0.3-0.9); MONOCYTES % 8.7 % (0.0-11.0); NEUTROPHIL # 6.5 10^3/ul (1.6-7.5); NEUTROPHILS % 66.1 % (39.0-77.0); PLATELET COUNT 347 10^3/UL (140-415); RED BLOOD COUNT 3.95 10^6/ul (4.70-6.10); RED CELL DISTRIBUTION WIDTH 13.4 % (11.5-14.5)
[2017-08-31 07:44] LABS: INR 1.04; PROTIME 13.7 Sec (11.9-14.9); PT RATIO 1.1
[2017-08-31 07:45] LABS: PARTIAL THROMBOPLASTIN TIME 38.3 Sec (25.0-35.0)
[2017-08-31 07:51] LABS: MAGNESIUM 1.8 mg/dl (1.7-2.5)
[2017-08-31 07:51] LABS: PHOSPHORUS 6.7 mg/dl (2.5-4.9)
[2017-08-31 07:53] LABS: ALANINE AMINOTRANSFERASE 67 IU/L (13-69); ALBUMIN 3.7 g/dl (3.3-4.9); ALBUMIN/GLOBULIN RATIO 1.12; ALKALINE PHOSPHATASE 129 IU/L (42-121); ANION GAP 18 (8-16); ASPARTATE AMINO TRANSFERASE 95 IU/L (15-46); BLOOD UREA NITROGEN 57 mg/dl (7-20); CALCIUM 8.8 mg/dl (8.4-10.2); CARBON DIOXIDE 27 mmol/L (21-31); CHLORIDE 94 mmol/L (97-110); CREATININE 9.62 mg/dl (0.61-1.24); LIPASE 630 U/L (23-300); POTASSIUM 3.6 mmol/L (3.5-5.1); SODIUM 135 mmol/L (135-144)
[2017-08-31 07:56] LABS: GLUCOSE 442 mg/dl (70-220)
[2017-08-31] MEDS: ASPIRIN 81 MG TAB PO (08:07)
[2017-08-31] MEDS: INSULIN ASPART [NOVOLOG] 3 ML PEN SC ×7 (08:14→21:42)
[2017-08-31] MEDS ORDERED: ALBUMIN HUMAN 25% 100 ML IV (10:00)
[2017-08-31] MEDS: SOD CHLORIDE 0.9% 1,000 ML IV (12:00)
[2017-08-31] MEDS: INSULIN GLARGINE [LANtus] 3 ML PEN SC (21:38)
[2017-08-31] MEDS: ATORVASTATIN 40 MG TAB PO (21:38)
[2017-08-31] MEDS: MEROPENEM 500MG/50 ML (PMX) 50 ML IVPB (21:44)
[2017-09-01] MEDS: ACCU-CHEK XX (04:16)
[2017-09-01] MEDS: INSULIN ASPART [NOVOLOG] 3 ML PEN SC ×7 (08:08→20:54)
[2017-09-01] MEDS: ASPIRIN 81 MG TAB PO (09:25)
[2017-09-01 09:28] LABS: ADD MAN DIFF? NO
[2017-09-01 09:32] LABS: BASOPHIL # 0.1 10^3/ul (0.0-0.1); BASOPHILS % 0.7 % (0.0-2.0); EOSINOPHILS # 0.4 10^3/ul (0.0-0.5); EOSINOPHILS % 3.7 % (0.0-7.0); HEMATOCRIT 31.1 % (42.0-52.0); HEMOGLOBIN 10.3 g/dl (14.0-18.0); LYMPHOCYTES # 2.1 10^3/ul (0.8-2.9); LYMPHOCYTES % 21.2 % (15.0-51.0); MEAN CORPUSCULAR HEMOGLOBIN 26.4 pg (29.0-33.0); MEAN CORPUSCULAR HGB CONC 33.1 g/dl (32.0-37.0); MEAN CORPUSCULAR VOLUME 79.7 fl (82.0-101.0); MEAN PLATELET VOLUME 9.7 fl (7.4-10.4); MONOCYTE # 0.9 10^3/ul (0.3-0.9); MONOCYTES % 9.6 % (0.0-11.0); NEUTROPHIL # 6.3 10^3/ul (1.6-7.5); PLATELET COUNT 318 10^3/UL (140-415); RED CELL DISTRIBUTION WIDTH 13.8 % (11.5-14.5)
[2017-09-01 09:32] LABS: WHITE BLOOD COUNT 9.8 10^3/ul (4.8-10.8)
[2017-09-01 09:59] LABS: ANION GAP 16 (8-16); BLOOD UREA NITROGEN 45 mg/dl (7-20); CALCIUM 9.6 mg/dl (8.4-10.2); CARBON DIOXIDE 30 mmol/L (21-31); CHLORIDE 99 mmol/L (97-110); CREATININE 8.13 mg/dl (0.61-1.24); GLUCOSE 197 mg/dl (70-220); POTASSIUM 4.2 mmol/L (3.5-5.1); SODIUM 141 mmol/L (135-144)
[2017-09-01 15:12] LABS: PROCALCITONIN 1.12 ng/mL (<0.10)
[2017-09-01] MEDS: ATORVASTATIN 40 MG TAB PO (20:54)
[2017-09-01] MEDS: INSULIN GLARGINE [LANtus] 3 ML PEN SC (21:04)
[2017-09-01] MEDS: MEROPENEM 500MG/50 ML (PMX) 50 ML IVPB (22:27)
[2017-09-01 23:02] LABS: ADD UMIC YES; UR ASCORBIC ACID NEGATIVE (NEGATIVE); UR BILIRUBIN (Dip) NEGATIVE (NEGATIVE); UR BLOOD (Dip) 1+ mg/dL (NEGATIVE); UR CLARITY CLEAR (CLEAR); UR COLOR YELLOW (YELLOW); UR GLUCOSE (Dip) 1+ mg/dL (NEGATIVE); UR KETONES (Dip) NEGATIVE (NEGATIVE); UR LEUKOCYTE ESTERASE (Dip) NEGATIVE Leu/ul (NEGATIVE); UR NITRITE (Dip) NEGATIVE (NEGATIVE); UR RBC 0 /HPF (0-5); UR TOTAL PROTEIN (Dip) 2+ mg/dl (NEGATIVE); UR UROBILINOGEN (Dip) NEGATIVE (NEGATIVE); UR WBC 1 /HPF (0-5)
[2017-09-02] MEDS: ACCU-CHEK XX (02:00)
[2017-09-02] MEDS: ACETAMINOPHEN 325 MG TAB PO ×2 (05:08→09:16)
[2017-09-02 07:22] LABS: ADD MAN DIFF? NO
[2017-09-02 07:24] LABS: WHITE BLOOD COUNT 10.4 10^3/ul (4.8-10.8)
[2017-09-02 07:24] LABS: BASOPHIL # 0.1 10^3/ul (0.0-0.1); BASOPHILS % 0.7 % (0.0-2.0); EOSINOPHILS # 0.5 10^3/ul (0.0-0.5); EOSINOPHILS % 4.5 % (0.0-7.0); HEMATOCRIT 28.2 % (42.0-52.0); HEMOGLOBIN 9.5 g/dl (14.0-18.0); LYMPHOCYTES # 2.1 10^3/ul (0.8-2.9); MEAN CORPUSCULAR HEMOGLOBIN 26.7 pg (29.0-33.0); MEAN CORPUSCULAR HGB CONC 33.7 g/dl (32.0-37.0); MEAN CORPUSCULAR VOLUME 79.2 fl (82.0-101.0); MEAN PLATELET VOLUME 9.2 fl (7.4-10.4); MONOCYTE # 0.8 10^3/ul (0.3-0.9); MONOCYTES % 7.7 % (0.0-11.0); NEUTROPHIL # 6.9 10^3/ul (1.6-7.5); NEUTROPHILS % 66.3 % (39.0-77.0); PLATELET COUNT 291 10^3/UL (140-415); RED BLOOD COUNT 3.56 10^6/ul (4.70-6.10); RED CELL DISTRIBUTION WIDTH 13.7 % (11.5-14.5)
[2017-09-02 07:44] LABS: ANION GAP 15 (8-16); BLOOD UREA NITROGEN 58 mg/dl (7-20); CALCIUM 9.4 mg/dl (8.4-10.2); CARBON DIOXIDE 26 mmol/L (21-31); CHLORIDE 100 mmol/L (97-110); CREATININE 8.78 mg/dl (0.61-1.24); GLUCOSE 102 mg/dl (70-220); POTASSIUM 4.4 mmol/L (3.5-5.1); SODIUM 137 mmol/L (135-144)
[2017-09-02] MEDS: INSULIN ASPART [NOVOLOG] 3 ML PEN SC ×7 (07:55→20:41)
[2017-09-02] MEDS: ASPIRIN 81 MG TAB PO (08:57)
[2017-09-02] MEDS: ATORVASTATIN 40 MG TAB PO (20:31)
[2017-09-02] MEDS: INSULIN GLARGINE [LANtus] 3 ML PEN SC (20:33)
[2017-09-03] MEDS: ACCU-CHEK XX (02:30)
[2017-09-03 06:27] LABS: ADD MAN DIFF? NO
[2017-09-03 06:34] LABS: WHITE BLOOD COUNT 10.3 10^3/ul (4.8-10.8)
[2017-09-03 06:34] LABS: BASOPHIL # 0.1 10^3/ul (0.0-0.1); BASOPHILS % 0.8 % (0.0-2.0); EOSINOPHILS # 0.5 10^3/ul (0.0-0.5); EOSINOPHILS % 4.8 % (0.0-7.0); HEMATOCRIT 29.3 % (42.0-52.0); HEMOGLOBIN 9.7 g/dl (14.0-18.0); LYMPHOCYTES # 2.1 10^3/ul (0.8-2.9); LYMPHOCYTES % 20.8 % (15.0-51.0); MEAN CORPUSCULAR HEMOGLOBIN 26.6 pg (29.0-33.0); MEAN CORPUSCULAR HGB CONC 33.1 g/dl (32.0-37.0); MEAN CORPUSCULAR VOLUME 80.3 fl (82.0-101.0); MEAN PLATELET VOLUME 9.6 fl (7.4-10.4); MONOCYTE # 0.8 10^3/ul (0.3-0.9); MONOCYTES % 7.7 % (0.0-11.0); NEUTROPHIL # 6.7 10^3/ul (1.6-7.5); NEUTROPHILS % 65.1 % (39.0-77.0); PLATELET COUNT 314 10^3/UL (140-415); RED BLOOD COUNT 3.65 10^6/ul (4.70-6.10); RED CELL DISTRIBUTION WIDTH 13.6 % (11.5-14.5)
[2017-09-03 06:43] LABS: ANION GAP 16 (8-16); BLOOD UREA NITROGEN 42 mg/dl (7-20); CALCIUM 9.6 mg/dl (8.4-10.2); CARBON DIOXIDE 28 mmol/L (21-31); CHLORIDE 103 mmol/L (97-110); CREATININE 6.61 mg/dl (0.61-1.24); GLUCOSE 221 mg/dl (70-220); POTASSIUM 4.7 mmol/L (3.5-5.1); SODIUM 142 mmol/L (135-144)
[2017-09-03] MEDS: ASPIRIN 81 MG TAB PO (08:14)
[2017-09-03] MEDS: AMLODIPINE 5 MG TAB PO (08:14)
[2017-09-03] MEDS: INSULIN ASPART [NOVOLOG] 3 ML PEN SC ×4 (08:20→11:57)
== END 2017-09-03 14:12 | DRG 242 ==
LOC: TEL 08-29 20:18 → E/R 08:05 → ICU 08-26 15:30 → TEL 08-27 20:10
PROC: 0JH606Z Insertion of Pacemaker, Dual Chamber into Chest Subcutaneous Tissue and Fascia, Open Approach (ICD-10-PCS; principal; 2017-08-21 16:00)
PROC: 02HK3JZ Insertion of Pacemaker Lead into Right Ventricle, Percutaneous Approach (ICD-10-PCS; 2017-08-21 16:00)
PROC: 02H63JZ Insertion of Pacemaker Lead into Right Atrium, Percutaneous Approach (ICD-10-PCS; 2017-08-21 16:00)
PROC: 5A1D70Z Performance of Urinary Filtration, Intermittent, Less than 6 Hours Per Day (ICD-10-PCS; 2017-08-21 16:45)
DX: I49.5 Sick sinus syndrome (principal); A41.9 Sepsis, unspecified organism; R65.21 Severe sepsis with septic shock; G92 Toxic encephalopathy; E87.0 Hyperosmolality and hypernatremia; N18.6 End stage renal disease; I12.0 Hypertensive chronic kidney disease with stage 5 chronic kidney disease or end stage renal disease; E87.5 Hyperkalemia; B35.1 Tinea unguium; R00.1 Bradycardia, unspecified; I25.10 Atherosclerotic heart disease of native coronary artery without angina pectoris; E11.22 Type 2 diabetes mellitus with diabetic chronic kidney disease; E11.65 Type 2 diabetes mellitus with hyperglycemia; D72.829 Elevated white blood cell count, unspecified; E78.5 Hyperlipidemia, unspecified; K21.9 Gastro-esophageal reflux disease without esophagitis; H57.13 Ocular pain, bilateral; R94.31 Abnormal electrocardiogram [ECG] [EKG]; Z99.2 Dependence on renal dialysis; Z85.46 Personal history of malignant neoplasm of prostate; Z87.891 Personal history of nicotine dependence; Z79.4 Long term (current) use of insulin; Z79.82 Long term (current) use of aspirin
CPT/HCPCS: 36600; 70450; 70551; 71045; 80048; 80053; 80061; 80202; 81001; 82140; 82550; 82553; 82803; 82962; 83036; 83605; 83690; 83735; 83880; 84100; 84145; 84443; 84484; 85025; 85610; 85730; 86703; 86706; 87040; 87070; 87081; 87086; 87340; 87400; 90935; 92526; 92610; 93005; 94664; 95819; 97162; 99285-25

== ENCOUNTER 2017-09-03 14:38 | Inpatient (IN) | payer MEDICARE, OTHER ==
[2017-09-03] MEDS ORDERED: MAGNESIUM HYDROXIDE 30ML CUP PO (16:00)
[2017-09-03] MEDS ORDERED: BISACODYL 10 MG SUPP PR (16:00)
[2017-09-03] MEDS ORDERED: LACTULOSE 30ML CUP PO (16:00)
[2017-09-03] MEDS ORDERED: GLUCAGON 1 MG INJ IM (17:30)
[2017-09-03] MEDS ORDERED: GLUCOSE GEL 15 GRAM TUBE PO ×2 (17:30)
[2017-09-03] MEDS ORDERED: NITROGLYCERIN AEROSOL (4.9 GM) SL ×2 (17:30→17:46)
[2017-09-03] MEDS ORDERED: GLUCOSE GEL 15 GRAM TUBE BUCCAL (17:30)
[2017-09-03] MEDS ORDERED: DEXTROSE 50% 50 ML SYRINGE IV ×2 (17:30)
[2017-09-03] MEDS: INSULIN ASPART [NOVOLOG] 3 ML PEN SC ×3 (17:57→20:23)
[2017-09-03] MEDS ORDERED: ALBUMIN HUMAN 25% 100 ML IV (18:00)
[2017-09-03] MEDS: DOCUSATE SODIUM 100 MG CAP PO (20:23)
[2017-09-03] MEDS: SENNA TAB PO (20:23)
[2017-09-03] MEDS: INSULIN GLARGINE [LANtus] 3 ML PEN SC (20:23)
[2017-09-03] MEDS: ATORVASTATIN 40 MG TAB PO (20:23)
[2017-09-03] MEDS: ACETAMINOPHEN 325 MG TAB PO (21:08)
[2017-09-03] MEDS: ZOLPIDEM 5 MG TAB PO (22:54)
[2017-09-03 23:18] LABS: ADD UMIC YES; UR ASCORBIC ACID NEGATIVE (NEGATIVE); UR BILIRUBIN (Dip) NEGATIVE (NEGATIVE); UR BLOOD (Dip) NEGATIVE (NEGATIVE); UR CLARITY CLEAR (CLEAR); UR COLOR YELLOW (YELLOW); UR GLUCOSE (Dip) NEGATIVE (NEGATIVE); UR KETONES (Dip) NEGATIVE (NEGATIVE); UR LEUKOCYTE ESTERASE (Dip) NEGATIVE Leu/ul (NEGATIVE); UR NITRITE (Dip) NEGATIVE (NEGATIVE); UR RBC 0 /HPF (0-5); UR SPECIFIC GRAVITY (Dip) 1.013 (1.003-1.030); UR TOTAL PROTEIN (Dip) 2+ mg/dl (NEGATIVE); UR UROBILINOGEN (Dip) NEGATIVE (NEGATIVE); UR WBC 1 /HPF (0-5)
[2017-09-04] MEDS: ACCU-CHEK XX (02:00)
[2017-09-04 06:35] LABS: ADD MAN DIFF? NO
[2017-09-04 06:45] LABS: BASOPHIL # 0.1 10^3/ul (0.0-0.1); BASOPHILS % 0.6 % (0.0-2.0); EOSINOPHILS # 0.5 10^3/ul (0.0-0.5); EOSINOPHILS % 5.1 % (0.0-7.0); HEMATOCRIT 27.3 % (42.0-52.0); LYMPHOCYTES # 2.1 10^3/ul (0.8-2.9); LYMPHOCYTES % 21.9 % (15.0-51.0); MEAN CORPUSCULAR HEMOGLOBIN 26.3 pg (29.0-33.0); MEAN CORPUSCULAR VOLUME 79.8 fl (82.0-101.0); MEAN PLATELET VOLUME 9.5 fl (7.4-10.4); MONOCYTE # 0.7 10^3/ul (0.3-0.9); MONOCYTES % 7.1 % (0.0-11.0); NEUTROPHIL # 6.1 10^3/ul (1.6-7.5); NEUTROPHILS % 64.7 % (39.0-77.0); PLATELET COUNT 273 10^3/UL (140-415); RED BLOOD COUNT 3.42 10^6/ul (4.70-6.10); RED CELL DISTRIBUTION WIDTH 13.5 % (11.5-14.5)
[2017-09-04 06:45] LABS: WHITE BLOOD COUNT 9.4 10^3/ul (4.8-10.8)
[2017-09-04] MEDS: INSULIN ASPART [NOVOLOG] 3 ML PEN SC ×7 (07:35→20:23)
[2017-09-04] MEDS: DOCUSATE SODIUM 100 MG CAP PO ×2 (08:15→20:22)
[2017-09-04] MEDS: ASPIRIN 81 MG TAB PO (08:16)
[2017-09-04] MEDS: AMLODIPINE 5 MG TAB PO (08:17)
[2017-09-04] MEDS: ATORVASTATIN 40 MG TAB PO (20:21)
[2017-09-04] MEDS: SENNA TAB PO (20:22)
[2017-09-04] MEDS: INSULIN GLARGINE [LANtus] 3 ML PEN SC (20:23)
[2017-09-04] MEDS: ZOLPIDEM 5 MG TAB PO ×2 (20:54→21:42)
[2017-09-05] MEDS: ACCU-CHEK XX (02:00)
[2017-09-05] MEDS ORDERED: PENDING SANTYL ORDER FOR WOUND CARE XX ×2 (07:30)
[2017-09-05] MEDS: INSULIN ASPART [NOVOLOG] 3 ML PEN SC ×7 (07:35→20:28)
[2017-09-05] MEDS: ASPIRIN 81 MG TAB PO (09:35)
[2017-09-05] MEDS: AMLODIPINE 5 MG TAB PO (09:35)
[2017-09-05] MEDS: DOCUSATE SODIUM 100 MG CAP PO ×2 (09:35→20:28)
[2017-09-05] MEDS: ATORVASTATIN 40 MG TAB PO (20:28)
[2017-09-05] MEDS: SENNA TAB PO (20:28)
[2017-09-05] MEDS: INSULIN GLARGINE [LANtus] 3 ML PEN SC (20:31)
[2017-09-05] MEDS: ZOLPIDEM 5 MG TAB PO ×2 (21:09→22:15)
[2017-09-06] MEDS: ACCU-CHEK XX (01:21)
[2017-09-06] MEDS: HYDROCODONE/APAP (5/325) TAB PO ×4 (02:46→20:43)
[2017-09-06] MEDS: INSULIN ASPART [NOVOLOG] 3 ML PEN SC ×7 (07:35→21:00)
[2017-09-06 09:20] LABS: HEPATITIS B SURFACE ANTIGEN NEGATIVE (NEGATIVE)
[2017-09-06] MEDS: DOCUSATE SODIUM 100 MG CAP PO ×2 (11:03→20:41)
[2017-09-06] MEDS: ASPIRIN 81 MG TAB PO (11:03)
[2017-09-06] MEDS: AMLODIPINE 5 MG TAB PO (11:04)
[2017-09-06] MEDS: ONDANSETRON 4 MG INJ IV (18:56)
[2017-09-06] MEDS: INSULIN GLARGINE [LANtus] 3 ML PEN SC ×2 (20:00→21:34)
[2017-09-06] MEDS: SENNA TAB PO (20:41)
[2017-09-06] MEDS: ATORVASTATIN 40 MG TAB PO (20:41)
[2017-09-07] MEDS: ACCU-CHEK XX (02:45)
[2017-09-07] MEDS: PROMETHAZINE/CODEINE 5ML CUP PO (02:46)
[2017-09-07] MEDS: HYDROCODONE/APAP (5/325) TAB PO ×3 (04:12→20:26)
[2017-09-07] MEDS: INSULIN ASPART [NOVOLOG] 3 ML PEN SC ×7 (07:35→20:30)
[2017-09-07] MEDS: AMLODIPINE 5 MG TAB PO (09:29)
[2017-09-07] MEDS: DOCUSATE SODIUM 100 MG CAP PO ×2 (09:29→20:25)
[2017-09-07] MEDS: ASPIRIN 81 MG TAB PO (09:29)
[2017-09-07] MEDS: ATORVASTATIN 40 MG TAB PO (20:25)
[2017-09-07] MEDS: INSULIN GLARGINE [LANtus] 3 ML PEN SC (20:28)
[2017-09-07] MEDS: SENNA TAB PO (20:30)
[2017-09-08] MEDS: HYDROCODONE/APAP (5/325) TAB PO (00:48)
[2017-09-08] MEDS: ACCU-CHEK XX (01:36)
[2017-09-08] MEDS: ZOLPIDEM 5 MG TAB PO (02:16)
[2017-09-08] MEDS: INSULIN ASPART [NOVOLOG] 3 ML PEN SC ×4 (07:35→12:23)
[2017-09-08] MEDS: ASPIRIN 81 MG TAB PO (08:46)
[2017-09-08] MEDS: DOCUSATE SODIUM 100 MG CAP PO (08:46)
[2017-09-08] MEDS: AMLODIPINE 5 MG TAB PO (08:46)
== END 2017-09-08 13:30 | disposition home health service (06) | DRG 91 ==
LOC: VRC 14:38
PROC: F07Z9FZ Gait Training/Functional Ambulation Treatment using Assistive, Adaptive, Supportive or Protective Equipment (ICD-10-PCS; principal; 2017-09-03)
PROC: F07Z8FZ Transfer Training Treatment using Assistive, Adaptive, Supportive or Protective Equipment (ICD-10-PCS; 2017-09-03)
PROC: F07Z5FZ Bed Mobility Treatment using Assistive, Adaptive, Supportive or Protective Equipment (ICD-10-PCS; 2017-09-03)
PROC: F08Z2FZ Grooming/Personal Hygiene Treatment using Assistive, Adaptive, Supportive or Protective Equipment (ICD-10-PCS; 2017-09-03)
PROC: F08Z0FZ Bathing/Showering Techniques Treatment using Assistive, Adaptive, Supportive or Protective Equipment (ICD-10-PCS; 2017-09-03)
PROC: F08Z1FZ Dressing Techniques Treatment using Assistive, Adaptive, Supportive or Protective Equipment (ICD-10-PCS; 2017-09-03)
DX: G92 Toxic encephalopathy (principal); N18.6 End stage renal disease; E11.22 Type 2 diabetes mellitus with diabetic chronic kidney disease; I12.0 Hypertensive chronic kidney disease with stage 5 chronic kidney disease or end stage renal disease; E11.65 Type 2 diabetes mellitus with hyperglycemia; I25.10 Atherosclerotic heart disease of native coronary artery without angina pectoris; B35.1 Tinea unguium; K21.9 Gastro-esophageal reflux disease without esophagitis; E11.69 Type 2 diabetes mellitus with other specified complication; E78.5 Hyperlipidemia, unspecified; F06.31 Mood disorder due to known physiological condition with depressive features; F06.8 Other specified mental disorders due to known physiological condition; Z87.891 Personal history of nicotine dependence; Z79.4 Long term (current) use of insulin; Z99.2 Dependence on renal dialysis; Z95.0 Presence of cardiac pacemaker; Z79.82 Long term (current) use of aspirin; Z85.46 Personal history of malignant neoplasm of prostate; Z86.73 Personal history of transient ischemic attack (TIA), and cerebral infarction without residual deficits; Z86.19 Personal history of other infectious and parasitic diseases
CPT/HCPCS: 81001; 82962; 85025; 87081; 87086; 87340; 90935; 92507; 92523; 97110; 97112; 97116; 97150; 97162; 97166; 97530; 97535

== ENCOUNTER 2018-08-02 18:26 | Emergency (ER) | payer MEDICARE, OTHER ==
[2018-08-02 21:38] LABS: ADD UMIC YES; UR ASCORBIC ACID NEGATIVE (NEGATIVE); UR BACTERIA FEW /HPF (NONE SEEN); UR BILIRUBIN (Dip) NEGATIVE (NEGATIVE); UR BLOOD (Dip) 2+ mg/dL (NEGATIVE); UR CLARITY CLOUDY (CLEAR); UR COLOR YELLOW (YELLOW); UR GLUCOSE (Dip) 3+ mg/dL (NEGATIVE); UR KETONES (Dip) NEGATIVE (NEGATIVE); UR LEUKOCYTE ESTERASE (Dip) 3+ Leu/ul (NEGATIVE); UR NITRITE (Dip) NEGATIVE (NEGATIVE); UR RBC 61 /HPF (0-5); UR TOTAL PROTEIN (Dip) 2+ mg/dl (NEGATIVE); UR UROBILINOGEN (Dip) NEGATIVE (NEGATIVE); UR WBC > 182 /HPF (0-5)
[2018-08-02 22:03] LABS: ADD MAN DIFF? NO
[2018-08-02 22:18] LABS: WHITE BLOOD COUNT 9.3 10^3/ul (4.8-10.8)
[2018-08-02 22:18] LABS: BASOPHIL # 0.1 10^3/ul (0.0-0.1); BASOPHILS % 0.6 % (0.0-2.0); EOSINOPHILS # 0.4 10^3/ul (0.0-0.5); EOSINOPHILS % 3.9 % (0.0-7.0); HEMATOCRIT 37.1 % (42.0-52.0); LYMPHOCYTES # 1.9 10^3/ul (0.8-2.9); LYMPHOCYTES % 20.8 % (15.0-51.0); MEAN CORPUSCULAR HEMOGLOBIN 25.2 pg (29.0-33.0); MEAN CORPUSCULAR HGB CONC 32.3 g/dl (32.0-37.0); MEAN CORPUSCULAR VOLUME 77.9 fl (82.0-101.0); MEAN PLATELET VOLUME 10.4 fl (7.4-10.4); MONOCYTE # 0.8 10^3/ul (0.3-0.9); MONOCYTES % 8.4 % (0.0-11.0); NEUTROPHIL # 6.1 10^3/ul (1.6-7.5); PLATELET COUNT 243 10^3/UL (140-415); RED BLOOD COUNT 4.76 10^6/ul (4.70-6.10); RED CELL DISTRIBUTION WIDTH 17.2 % (11.5-14.5)
[2018-08-02 22:32] LABS: ALANINE AMINOTRANSFERASE 20 IU/L (13-69); ALBUMIN 4.7 g/dl (3.3-4.9); ALBUMIN/GLOBULIN RATIO 1.14; ALKALINE PHOSPHATASE 153 IU/L (42-121); ANION GAP 18 (5-13); ASPARTATE AMINO TRANSFERASE 30 IU/L (15-46); BLOOD UREA NITROGEN 51 mg/dl (7-20); CALCIUM 9.8 mg/dl (8.4-10.2); CARBON DIOXIDE 30 mmol/L (21-31); CHLORIDE 90 mmol/L (97-110); CREATININE 8.17 mg/dl (0.61-1.24); Estimated GFR 8 mL/min (>60); GLUCOSE 257 mg/dl (70-220); POTASSIUM 4.7 mmol/L (3.5-5.1); SODIUM 138 mmol/L (135-144); TOTAL PROTEIN 8.8 g/dl (6.1-8.1)
[2018-08-02] MEDS: CEFTRIAXONE 1 GM INJ IM (23:03)
[2018-08-02] MEDS: LIDOCAINE 1% (MPF) 5 ML VIAL INJ (23:03)
== END 2018-08-02 22:55 | disposition home or self-care (01) ==
LOC: FTE 22:55
DX: N39.0 Urinary tract infection, site not specified (principal); N18.6 End stage renal disease; I12.0 Hypertensive chronic kidney disease with stage 5 chronic kidney disease or end stage renal disease; Z79.4 Long term (current) use of insulin; Z79.82 Long term (current) use of aspirin; Z99.2 Dependence on renal dialysis; Z87.891 Personal history of nicotine dependence
CPT/HCPCS: 80053; 81001; 85025; 87086; 96372; 99284-25

== ENCOUNTER 2018-08-22 11:13 | Emergency (ER) | payer MEDICARE, OTHER ==
[2018-08-22 12:31] LABS: ADD MAN DIFF? NO
[2018-08-22] MEDS: ONDANSETRON 4 MG INJ IV (12:31)
[2018-08-22] MEDS: morphine 4 MG/ML VIAL IV (12:32)
[2018-08-22 12:33] LABS: WHITE BLOOD COUNT 5.4 10^3/ul (4.8-10.8)
[2018-08-22 12:33] LABS: BASOPHIL # 0.1 10^3/ul (0.0-0.1); BASOPHILS % 0.9 % (0.0-2.0); EOSINOPHILS # 0.3 10^3/ul (0.0-0.5); EOSINOPHILS % 5.9 % (0.0-7.0); HEMATOCRIT 32.8 % (42.0-52.0); HEMOGLOBIN 10.4 g/dl (14.0-18.0); LYMPHOCYTES # 1.6 10^3/ul (0.8-2.9); LYMPHOCYTES % 29.1 % (15.0-51.0); MEAN CORPUSCULAR HEMOGLOBIN 25.2 pg (29.0-33.0); MEAN CORPUSCULAR HGB CONC 31.7 g/dl (32.0-37.0); MEAN CORPUSCULAR VOLUME 79.6 fl (82.0-101.0); MEAN PLATELET VOLUME 9.3 fl (7.4-10.4); MONOCYTE # 0.4 10^3/ul (0.3-0.9); MONOCYTES % 7.7 % (0.0-11.0); NEUTROPHIL # 3.1 10^3/ul (1.6-7.5); NEUTROPHILS % 56.2 % (39.0-77.0); PLATELET COUNT 246 10^3/UL (140-415); RED BLOOD COUNT 4.12 10^6/ul (4.70-6.10); RED CELL DISTRIBUTION WIDTH 16.8 % (11.5-14.5)
[2018-08-22 12:43] LABS: ADD UMIC YES; UR ASCORBIC ACID NEGATIVE (NEGATIVE); UR BILIRUBIN (Dip) NEGATIVE (NEGATIVE); UR BLOOD (Dip) NEGATIVE (NEGATIVE); UR CLARITY CLEAR (CLEAR); UR COLOR YELLOW (YELLOW); UR GLUCOSE (Dip) 2+ mg/dL (NEGATIVE); UR KETONES (Dip) NEGATIVE (NEGATIVE); UR LEUKOCYTE ESTERASE (Dip) NEGATIVE Leu/ul (NEGATIVE); UR NITRITE (Dip) NEGATIVE (NEGATIVE); UR RBC 0 /HPF (0-5); UR SPECIFIC GRAVITY (Dip) 1.009 (1.003-1.030); UR SQUAMOUS EPITHELIAL CELL FEW /HPF (FEW); UR TOTAL PROTEIN (Dip) 2+ mg/dl (NEGATIVE); UR UROBILINOGEN (Dip) NEGATIVE (NEGATIVE); UR WBC 2 /HPF (0-5)
[2018-08-22 12:56] LABS: ALANINE AMINOTRANSFERASE 20 IU/L (13-69); ALBUMIN 4.1 g/dl (3.3-4.9); ALKALINE PHOSPHATASE 119 IU/L (42-121); ANION GAP 14 (5-13); ASPARTATE AMINO TRANSFERASE 20 IU/L (15-46); BLOOD UREA NITROGEN 21 mg/dl (7-20); CALCIUM 9.6 mg/dl (8.4-10.2); CARBON DIOXIDE 37 mmol/L (21-31); CHLORIDE 89 mmol/L (97-110); CREATININE 5.21 mg/dl (0.61-1.24); Estimated GFR 13 mL/min (>60); GLUCOSE 290 mg/dl (70-220); LIPASE 427 U/L (23-300); POTASSIUM 3.9 mmol/L (3.5-5.1); SODIUM 140 mmol/L (135-144); TOTAL PROTEIN 7.8 g/dl (6.1-8.1)
== END 2018-08-22 14:47 | disposition home or self-care (01) ==
LOC: E/R 11:13
DX: M54.5 Low back pain (principal); E11.22 Type 2 diabetes mellitus with diabetic chronic kidney disease; N18.6 End stage renal disease; E11.65 Type 2 diabetes mellitus with hyperglycemia; I12.0 Hypertensive chronic kidney disease with stage 5 chronic kidney disease or end stage renal disease; Z79.4 Long term (current) use of insulin; Z79.82 Long term (current) use of aspirin; Z99.2 Dependence on renal dialysis
CPT/HCPCS: 36415; 80053; 81001; 83690; 85025; 87086; 96374; 96375; 99284-25

== ENCOUNTER 2018-09-07 11:14 | Observation (INO) | payer MEDICARE, OTHER ==
[2018-09-07 12:50] LABS: ADD MAN DIFF? NO
[2018-09-07] MEDS: ASPIRIN 81 MG TAB PO (12:52)
[2018-09-07] MEDS: NITROGLYCERIN 2% 1 GM OINT PKT TD (12:53)
[2018-09-07 12:54] LABS: BASOPHILS % 0.6 % (0.0-2.0); EOSINOPHILS # 0.2 10^3/ul (0.0-0.5); EOSINOPHILS % 2.9 % (0.0-7.0); HEMATOCRIT 34.2 % (42.0-52.0); HEMOGLOBIN 10.7 g/dl (14.0-18.0); LYMPHOCYTES # 1.7 10^3/ul (0.8-2.9); LYMPHOCYTES % 26.9 % (15.0-51.0); MEAN CORPUSCULAR HEMOGLOBIN 24.9 pg (29.0-33.0); MEAN CORPUSCULAR HGB CONC 31.3 g/dl (32.0-37.0); MEAN CORPUSCULAR VOLUME 79.7 fl (82.0-101.0); MEAN PLATELET VOLUME 9.4 fl (7.4-10.4); MONOCYTE # 0.5 10^3/ul (0.3-0.9); MONOCYTES % 7.9 % (0.0-11.0); NEUTROPHIL # 3.8 10^3/ul (1.6-7.5); NEUTROPHILS % 61.5 % (39.0-77.0); PLATELET COUNT 266 10^3/UL (140-415); RED BLOOD COUNT 4.29 10^6/ul (4.70-6.10)
[2018-09-07 12:54] LABS: WHITE BLOOD COUNT 6.2 10^3/ul (4.8-10.8)
[2018-09-07 13:21] LABS: ANION GAP 13 (5-13); BLOOD UREA NITROGEN 21 mg/dl (7-20); CALCIUM 9.7 mg/dl (8.4-10.2); CARBON DIOXIDE 35 mmol/L (21-31); CHLORIDE 90 mmol/L (97-110); CREATININE 4.91 mg/dl (0.61-1.24); Estimated GFR 14 mL/min (>60); GLUCOSE 199 mg/dl (70-220); POTASSIUM 3.9 mmol/L (3.5-5.1); SODIUM 138 mmol/L (135-144)
[2018-09-07 13:32] LABS: TROPONIN-I < 0.012 ng/ml (0.000-0.120)
[2018-09-07] MEDS ORDERED: ACETAMINOPHEN 325 MG TAB PO ×2 (14:00→23:30)
[2018-09-07] MEDS ORDERED: ONDANSETRON 4 MG INJ IV (14:00)
[2018-09-07 18:00] LABS: CREATINE KINASE 143 IU/L (23-200)
[2018-09-07 18:11] LABS: CK INDEX 0.4; CK-MB 0.53 ng/ml (0.0-2.4); TROPONIN-I < 0.012 ng/ml (0.000-0.120)
[2018-09-07] MEDS ORDERED: DEXTROSE 50% 50 ML SYRINGE IV ×2 (20:00)
[2018-09-07] MEDS ORDERED: GLUCOSE GEL 15 GRAM TUBE BUCCAL (20:00)
[2018-09-07] MEDS ORDERED: GLUCAGON 1 MG INJ IM (20:00)
[2018-09-07] MEDS ORDERED: NITROGLYCERIN (SL) 0.4 MG TAB SL (20:00)
[2018-09-07] MEDS ORDERED: GLUCOSE GEL 15 GRAM TUBE PO ×2 (20:00)
[2018-09-07] MEDS: INSULIN ASPART [NOVOLOG] 3 ML PEN SC (21:00)
[2018-09-07] MEDS: ATORVASTATIN 40 MG TAB GTB (21:31)
[2018-09-07] MEDS: METOPROLOL 25 MG TAB PO (21:33)
[2018-09-07] MEDS: ACETAMINOPHEN 325 MG TAB PO (23:18)
[2018-09-07 23:47] LABS: TROPONIN-I < 0.012 ng/ml (0.000-0.120)
[2018-09-08 00:55] LABS: CREATINE KINASE 139 IU/L (23-200)
[2018-09-08 01:05] LABS: CK-MB 0.46 ng/ml (0.0-2.4)
[2018-09-08] MEDS: ACCU-CHEK XX (01:38)
[2018-09-08 06:57] LABS: CHOLESTEROL 98 mg/dl (100-200)
[2018-09-08 06:57] LABS: CHOL/HDL RATIO 2.5 RATIO; HDL CHOLESTEROL 39 mg/dl (30-78); LDL CHOLESTEROL,CALCULATED 40 mg/dl; TRIGLYCERIDES 97 mg/dl (0-149)
[2018-09-08 06:59] LABS: TROPONIN-I < 0.012 ng/ml (0.000-0.120)
[2018-09-08] MEDS: INSULIN ASPART [NOVOLOG] 3 ML PEN SC ×4 (08:00→20:26)
[2018-09-08] MEDS: ASPIRIN 325 MG TAB PO (08:49)
[2018-09-08] MEDS: METOPROLOL 25 MG TAB PO ×2 (08:49→20:18)
[2018-09-08] MEDS: LISINOPRIL 10 MG TAB PO (08:50)
[2018-09-08] MEDS: ATORVASTATIN 40 MG TAB GTB (20:18)
[2018-09-08] MEDS: ACETAMINOPHEN 325 MG TAB PO (20:21)
[2018-09-09] MEDS: ACCU-CHEK XX (02:00)
[2018-09-09 05:49] LABS: ADD MAN DIFF? NO
[2018-09-09 05:52] LABS: WHITE BLOOD COUNT 7.3 10^3/ul (4.8-10.8)
[2018-09-09 05:52] LABS: BASOPHIL # 0.1 10^3/ul (0.0-0.1); BASOPHILS % 0.7 % (0.0-2.0); EOSINOPHILS # 0.3 10^3/ul (0.0-0.5); EOSINOPHILS % 3.4 % (0.0-7.0); HEMOGLOBIN 9.8 g/dl (14.0-18.0); LYMPHOCYTES % 27.3 % (15.0-51.0); MEAN CORPUSCULAR HGB CONC 31.6 g/dl (32.0-37.0); MEAN CORPUSCULAR VOLUME 79.1 fl (82.0-101.0); MEAN PLATELET VOLUME 9.5 fl (7.4-10.4); MONOCYTE # 0.6 10^3/ul (0.3-0.9); MONOCYTES % 8.4 % (0.0-11.0); NEUTROPHIL # 4.4 10^3/ul (1.6-7.5); NEUTROPHILS % 59.9 % (39.0-77.0); PLATELET COUNT 264 10^3/UL (140-415); RED BLOOD COUNT 3.92 10^6/ul (4.70-6.10); RED CELL DISTRIBUTION WIDTH 15.8 % (11.5-14.5)
[2018-09-09 06:05] LABS: INR 0.95; PARTIAL THROMBOPLASTIN TIME 29.3 Sec (23.0-35.0); PROTIME 12.8 Sec (11.9-14.9)
[2018-09-09 06:22] LABS: ANION GAP 11 (5-13); BLOOD UREA NITROGEN 60 mg/dl (7-20); CALCIUM 9.7 mg/dl (8.4-10.2); CARBON DIOXIDE 33 mmol/L (21-31); CHLORIDE 94 mmol/L (97-110); CREATININE 9.12 mg/dl (0.61-1.24); Estimated GFR 7 mL/min (>60); GLUCOSE 242 mg/dl (70-220); POTASSIUM 4.7 mmol/L (3.5-5.1); SODIUM 138 mmol/L (135-144)
[2018-09-09 06:25] LABS: MAGNESIUM 1.9 mg/dl (1.7-2.5)
[2018-09-09] MEDS ORDERED: SODIUM CHLORIDE 0.9% 1L BAG IV (08:00)
[2018-09-09] MEDS ORDERED: ALBUMIN HUMAN 25% 100 ML IV (08:00)
[2018-09-09 08:01] LABS: TROPONIN-I < 0.012 ng/ml (0.000-0.120)
[2018-09-09] MEDS: INSULIN ASPART [NOVOLOG] 3 ML PEN SC ×4 (08:20→20:57)
[2018-09-09] MEDS: LISINOPRIL 10 MG TAB PO (09:11)
[2018-09-09] MEDS: ASPIRIN 325 MG TAB PO (09:11)
[2018-09-09] MEDS: METOPROLOL 25 MG TAB PO ×2 (09:11→20:51)
[2018-09-09 14:00] LABS: HEPATITIS B SURFACE ANTIGEN NEGATIVE (NEGATIVE)
[2018-09-09] MEDS: CYCLOBENZAPRINE 10 MG TAB PO (18:16)
[2018-09-09] MEDS: ATORVASTATIN 40 MG TAB GTB (20:50)
[2018-09-09] MEDS: INSULIN GLARGINE [LANTus] (100 UNITS/ML) SYG SC (20:58)
[2018-09-10] MEDS: ACCU-CHEK XX (02:00)
[2018-09-10] MEDS: INSULIN ASPART [NOVOLOG] 3 ML PEN SC ×4 (07:56→20:57)
[2018-09-10] MEDS: CYCLOBENZAPRINE 10 MG TAB PO (08:50)
[2018-09-10] MEDS: ASPIRIN 325 MG TAB PO (08:50)
[2018-09-10] MEDS: METOPROLOL 25 MG TAB PO ×2 (09:00→20:54)
[2018-09-10] MEDS: LISINOPRIL 10 MG TAB PO (13:54)
[2018-09-10] MEDS: INSULIN GLARGINE [LANTus] (100 UNITS/ML) SYG SC (20:52)
[2018-09-10] MEDS: ATORVASTATIN 40 MG TAB GTB (20:54)
[2018-09-11] MEDS: CYCLOBENZAPRINE 10 MG TAB PO (01:38)
[2018-09-11] MEDS: ACCU-CHEK XX (02:00)
[2018-09-11] MEDS: INSULIN ASPART [NOVOLOG] 3 ML PEN SC ×2 (07:43→11:28)
[2018-09-11] MEDS: ASPIRIN 325 MG TAB PO (08:23)
[2018-09-11] MEDS: LISINOPRIL 10 MG TAB PO (08:24)
[2018-09-11] MEDS: METOPROLOL 25 MG TAB PO (08:24)
[2018-09-11] MEDS: ACETAMINOPHEN 325 MG TAB PO (08:29)
[2018-09-11] MEDS: GUAIFENESIN/DM 5ML CUP PO (10:46)
[2018-09-11] MEDS: NITROGLYCERIN (SL) 0.4 MG TAB SL ×2 (10:57→11:04)
== END 2018-09-11 15:18 | disposition home or self-care (01) ==
LOC: E/R 11:14 → 6WM 13:43
DX: R07.9 Chest pain, unspecified (principal); I13.2 Hypertensive heart and chronic kidney disease with heart failure and with stage 5 chronic kidney disease, or end stage renal disease; I50.9 Heart failure, unspecified; E11.22 Type 2 diabetes mellitus with diabetic chronic kidney disease; N18.6 End stage renal disease; Z99.2 Dependence on renal dialysis; Z79.4 Long term (current) use of insulin; I25.10 Atherosclerotic heart disease of native coronary artery without angina pectoris; Z79.82 Long term (current) use of aspirin; E78.5 Hyperlipidemia, unspecified; D63.8 Anemia in other chronic diseases classified elsewhere; Z86.73 Personal history of transient ischemic attack (TIA), and cerebral infarction without residual deficits; Z85.46 Personal history of malignant neoplasm of prostate; Z95.0 Presence of cardiac pacemaker; E11.65 Type 2 diabetes mellitus with hyperglycemia
CPT/HCPCS: 36415; 71045; 80048; 80061; 82550; 82553; 82962; 83735; 84484; 85025; 85610; 85730; 87340; 90935; 93005; 93306; 99285-25; G0378

== ENCOUNTER 2018-11-28 10:23 | Inpatient (IN) | payer MEDICARE, OTHER ==
[2018-11-28 12:07] LABS: ADD MAN DIFF? NO
[2018-11-28 12:09] LABS: WHITE BLOOD COUNT 5.4 10^3/ul (4.8-10.8)
[2018-11-28 12:09] LABS: BASOPHILS % 0.7 % (0.0-2.0); EOSINOPHILS # 0.2 10^3/ul (0.0-0.5); EOSINOPHILS % 3.7 % (0.0-7.0); HEMATOCRIT 39.1 % (42.0-52.0); HEMOGLOBIN 12.3 g/dl (14.0-18.0); LYMPHOCYTES # 1.3 10^3/ul (0.8-2.9); LYMPHOCYTES % 23.8 % (15.0-51.0); MEAN CORPUSCULAR HEMOGLOBIN 26.9 pg (29.0-33.0); MEAN CORPUSCULAR HGB CONC 31.5 g/dl (32.0-37.0); MEAN CORPUSCULAR VOLUME 85.6 fl (82.0-101.0); MEAN PLATELET VOLUME 10.4 fl (7.4-10.4); MONOCYTE # 0.4 10^3/ul (0.3-0.9); MONOCYTES % 7.7 % (0.0-11.0); NEUTROPHIL # 3.5 10^3/ul (1.6-7.5); NEUTROPHILS % 63.9 % (39.0-77.0); PLATELET COUNT 240 10^3/UL (140-415); RED BLOOD COUNT 4.57 10^6/ul (4.70-6.10); RED CELL DISTRIBUTION WIDTH 14.5 % (11.5-14.5)
[2018-11-28 12:18] LABS: ADD UMIC YES; UR ASCORBIC ACID NEGATIVE (NEGATIVE); UR BILIRUBIN (Dip) NEGATIVE (NEGATIVE); UR BLOOD (Dip) NEGATIVE (NEGATIVE); UR CLARITY CLEAR (CLEAR); UR COLOR STRAW (YELLOW); UR GLUCOSE (Dip) 3+ mg/dL (NEGATIVE); UR KETONES (Dip) NEGATIVE (NEGATIVE); UR LEUKOCYTE ESTERASE (Dip) NEGATIVE Leu/ul (NEGATIVE); UR NITRITE (Dip) NEGATIVE (NEGATIVE); UR RBC 1 /HPF (0-5); UR SPECIFIC GRAVITY (Dip) 1.014 (1.003-1.030); UR TOTAL PROTEIN (Dip) 2+ mg/dl (NEGATIVE); UR UROBILINOGEN (Dip) NEGATIVE (NEGATIVE); UR WBC 1 /HPF (0-5)
[2018-11-28 12:33] LABS: ALANINE AMINOTRANSFERASE 9 IU/L (13-69); ALBUMIN 4.6 g/dl (3.3-4.9); ALBUMIN/GLOBULIN RATIO 1.17; ALKALINE PHOSPHATASE 221 IU/L (42-121); ANION GAP 15 (5-13); ASPARTATE AMINO TRANSFERASE 19 IU/L (15-46); BLOOD UREA NITROGEN 38 mg/dl (7-20); CALCIUM 9.6 mg/dl (8.4-10.2); CARBON DIOXIDE 30 mmol/L (21-31); CHLORIDE 96 mmol/L (97-110); CREATININE 9.33 mg/dl (0.61-1.24); Estimated GFR 7 mL/min (>60); LIPASE 342 U/L (23-300); POTASSIUM 4.2 mmol/L (3.5-5.1); SODIUM 141 mmol/L (135-144); TOTAL PROTEIN 8.5 g/dl (6.1-8.1)
[2018-11-28 12:51] LABS: GLUCOSE 485 mg/dl (70-220)
[2018-11-28] MEDS ORDERED: ACETAMINOPHEN 325 MG TAB PO (13:30)
[2018-11-28] MEDS ORDERED: ONDANSETRON 4 MG INJ IV (13:30)
[2018-11-28] MEDS: ACCU-CHEK XX (13:30)
[2018-11-28] MEDS: INSULIN LISPRO 100 UNIT/ML VIAL SC (13:31)
[2018-11-28] MEDS ORDERED: DEXTROSE 50% 50 ML SYRINGE IV (16:30)
[2018-11-28] MEDS ORDERED: GLUCAGON 1 MG INJ IM (16:30)
[2018-11-28] MEDS ORDERED: GLUCOSE GEL 15 GRAM TUBE PO ×2 (16:30)
[2018-11-28] MEDS: INSULIN ASPART [NOVOLOG] 3 ML PEN SC ×4 (18:05→21:00)
[2018-11-28] MEDS: HYDROCODONE/APAP (5/325) TAB PO (21:04)
[2018-11-28] MEDS: ATORVASTATIN 40 MG TAB PO (21:05)
[2018-11-28] MEDS: FAMOTIDINE 20 MG TAB PO (21:05)
[2018-11-28] MEDS: HEPARIN 5,000 UNIT/1 ML VIAL SC (21:06)
[2018-11-28] MEDS: INSULIN GLARGINE [LANTus] (100 UNITS/ML) SYG SC (22:25)
[2018-11-29] MEDS: HYDROCODONE/APAP (5/325) TAB PO ×2 (01:41→14:37)
[2018-11-29] MEDS: ACCU-CHEK XX (02:00)
[2018-11-29 06:47] LABS: ALANINE AMINOTRANSFERASE 17 IU/L (13-69); ALBUMIN 3.8 g/dl (3.3-4.9); ALBUMIN/GLOBULIN RATIO 1.22; ALKALINE PHOSPHATASE 123 IU/L (42-121); ANION GAP 12 (5-13); ASPARTATE AMINO TRANSFERASE 19 IU/L (15-46); BLOOD UREA NITROGEN 43 mg/dl (7-20); CALCIUM 9.5 mg/dl (8.4-10.2); CARBON DIOXIDE 29 mmol/L (21-31); CHLORIDE 100 mmol/L (97-110); CREATININE 9.91 mg/dl (0.61-1.24); Estimated GFR 6 mL/min (>60); GLUCOSE 54 mg/dl (70-220); POTASSIUM 3.5 mmol/L (3.5-5.1); SODIUM 141 mmol/L (135-144); TOTAL PROTEIN 6.9 g/dl (6.1-8.1)
[2018-11-29] MEDS: INSULIN ASPART [NOVOLOG] 3 ML PEN SC ×6 (08:00→21:00)
[2018-11-29] MEDS: LISINOPRIL 20 MG TAB PO (08:44)
[2018-11-29] MEDS: HEPARIN 5,000 UNIT/1 ML VIAL SC ×2 (08:47→21:07)
[2018-11-29] MEDS: BISACODYL (EC) 5 MG TAB PO (08:50)
[2018-11-29] MEDS: DOCUSATE SODIUM 100 MG CAP PO (08:50)
[2018-11-29] MEDS ORDERED: NIFEdipine (XL) 60 MG TAB PO (09:30)
[2018-11-29] MEDS ORDERED: hydrALAzine 20 MG INJ IV ×2 (09:30)
[2018-11-29] MEDS: morphine 2 MG INJ IV ×2 (09:31→18:55)
[2018-11-29] MEDS: DEXTROSE 50% 50 ML SYRINGE IV (10:58)
[2018-11-29] MEDS: NIFEdipine (XL) 60 MG TAB PO (11:05)
[2018-11-29 11:22] LABS: GLUCOSE 89 mg/dl (70-220)
[2018-11-29] MEDS ORDERED: INSULIN ASPART [NOVOLOG] 3 ML PEN SC (11:30)
[2018-11-29] MEDS ORDERED: ALBUMIN HUMAN 25% 100 ML IV (15:00)
[2018-11-29] MEDS ORDERED: SODIUM CHLORIDE 0.9% 1L BAG IV (15:00)
[2018-11-29 16:28] LABS: HEPATITIS B SURFACE ANTIGEN NEGATIVE (NEGATIVE)
[2018-11-29] MEDS: ONDANSETRON 4 MG INJ IV (20:48)
[2018-11-29] MEDS: MAGNESIUM HYDROXIDE 30ML CUP PO (20:54)
[2018-11-29] MEDS: FAMOTIDINE 20 MG TAB PO (20:58)
[2018-11-29] MEDS: ATORVASTATIN 40 MG TAB PO (20:58)
[2018-11-29] MEDS: PREDNISOLONE ACET 1% 5 ML OPH BOTH EYES (20:59)
[2018-11-29] MEDS: INSULIN GLARGINE [LANTus] (100 UNITS/ML) SYG SC (21:07)
[2018-11-30] MEDS: ACCU-CHEK XX (02:00)
[2018-11-30] MEDS: morphine 2 MG INJ IV ×2 (05:47→20:55)
[2018-11-30 07:55] LABS: ADD MAN DIFF? NO
[2018-11-30] MEDS: INSULIN ASPART [NOVOLOG] 3 ML PEN SC ×8 (08:00→20:58)
[2018-11-30 08:03] LABS: WHITE BLOOD COUNT 7.2 10^3/ul (4.8-10.8)
[2018-11-30 08:03] LABS: BASOPHILS % 0.6 % (0.0-2.0); EOSINOPHILS # 0.2 10^3/ul (0.0-0.5); EOSINOPHILS % 2.9 % (0.0-7.0); HEMATOCRIT 40.4 % (42.0-52.0); HEMOGLOBIN 12.9 g/dl (14.0-18.0); LYMPHOCYTES # 1.8 10^3/ul (0.8-2.9); LYMPHOCYTES % 24.4 % (15.0-51.0); MEAN CORPUSCULAR HEMOGLOBIN 26.9 pg (29.0-33.0); MEAN CORPUSCULAR HGB CONC 31.9 g/dl (32.0-37.0); MEAN CORPUSCULAR VOLUME 84.2 fl (82.0-101.0); MEAN PLATELET VOLUME 10.1 fl (7.4-10.4); MONOCYTE # 0.6 10^3/ul (0.3-0.9); MONOCYTES % 8.2 % (0.0-11.0); NEUTROPHIL # 4.6 10^3/ul (1.6-7.5); NEUTROPHILS % 63.6 % (39.0-77.0); PLATELET COUNT 273 10^3/UL (140-415); RED CELL DISTRIBUTION WIDTH 14.4 % (11.5-14.5)
[2018-11-30 08:19] LABS: ANION GAP 12 (5-13); BLOOD UREA NITROGEN 27 mg/dl (7-20); CALCIUM 9.9 mg/dl (8.4-10.2); CARBON DIOXIDE 32 mmol/L (21-31); CHLORIDE 97 mmol/L (97-110); CREATININE 8.64 mg/dl (0.61-1.24); Estimated GFR 7 mL/min (>60); GLUCOSE 85 mg/dl (70-220); POTASSIUM 4.2 mmol/L (3.5-5.1); SODIUM 141 mmol/L (135-144)
[2018-11-30 08:22] LABS: LIPASE 119 U/L (23-300)
[2018-11-30] MEDS: NIFEdipine (XL) 60 MG TAB PO (09:24)
[2018-11-30] MEDS: LISINOPRIL 20 MG TAB PO (09:24)
[2018-11-30] MEDS: HEPARIN 5,000 UNIT/1 ML VIAL SC ×2 (09:25→20:56)
[2018-11-30] MEDS: PREDNISOLONE ACET 1% 5 ML OPH BOTH EYES ×2 (10:10→21:11)
[2018-11-30] MEDS: BROMFENAC SODIUM 1.7 ML OPH DROP BOTH EYES (10:14)
[2018-11-30] MEDS: LACTULOSE 30ML CUP PO (10:52)
[2018-11-30] MEDS: ATORVASTATIN 40 MG TAB PO (20:41)
[2018-11-30] MEDS: FAMOTIDINE 20 MG TAB PO (20:42)
[2018-11-30] MEDS: INSULIN GLARGINE [LANTus] (100 UNITS/ML) SYG SC (20:58)
[2018-12-01] MEDS: ACCU-CHEK XX (01:51)
[2018-12-01] MEDS: morphine 2 MG INJ IV (02:00)
[2018-12-01] MEDS: INSULIN ASPART [NOVOLOG] 3 ML PEN SC ×7 (08:19→21:40)
[2018-12-01] MEDS: NIFEdipine (XL) 60 MG TAB PO (08:21)
[2018-12-01] MEDS: LISINOPRIL 20 MG TAB PO (08:21)
[2018-12-01] MEDS: PREDNISOLONE ACET 1% 5 ML OPH BOTH EYES ×2 (08:21→21:37)
[2018-12-01] MEDS: HEPARIN 5,000 UNIT/1 ML VIAL SC ×2 (08:25→21:38)
[2018-12-01] MEDS: FAMOTIDINE 20 MG TAB PO (21:37)
[2018-12-01] MEDS: ATORVASTATIN 40 MG TAB PO (21:37)
[2018-12-01] MEDS: INSULIN GLARGINE [LANTus] (100 UNITS/ML) SYG SC (21:39)
[2018-12-02] MEDS: ACCU-CHEK XX ×2 (02:06→20:32)
[2018-12-02 06:10] LABS: ADD MAN DIFF? NO
[2018-12-02 06:25] LABS: BASOPHIL # 0.1 10^3/ul (0.0-0.1); BASOPHILS % 0.9 % (0.0-2.0); EOSINOPHILS # 0.3 10^3/ul (0.0-0.5); EOSINOPHILS % 4.4 % (0.0-7.0); HEMATOCRIT 34.8 % (42.0-52.0); HEMOGLOBIN 11.2 g/dl (14.0-18.0); LYMPHOCYTES # 1.8 10^3/ul (0.8-2.9); LYMPHOCYTES % 26.3 % (15.0-51.0); MEAN CORPUSCULAR HEMOGLOBIN 26.7 pg (29.0-33.0); MEAN CORPUSCULAR HGB CONC 32.2 g/dl (32.0-37.0); MEAN CORPUSCULAR VOLUME 82.9 fl (82.0-101.0); MEAN PLATELET VOLUME 10.2 fl (7.4-10.4); MONOCYTE # 0.7 10^3/ul (0.3-0.9); MONOCYTES % 10.1 % (0.0-11.0); NEUTROPHIL # 3.9 10^3/ul (1.6-7.5); PLATELET COUNT 205 10^3/UL (140-415); RED CELL DISTRIBUTION WIDTH 14.4 % (11.5-14.5)
[2018-12-02 06:25] LABS: WHITE BLOOD COUNT 6.8 10^3/ul (4.8-10.8)
[2018-12-02 06:41] LABS: ANION GAP 12 (5-13); BLOOD UREA NITROGEN 39 mg/dl (7-20); CALCIUM 9.4 mg/dl (8.4-10.2); CARBON DIOXIDE 27 mmol/L (21-31); CHLORIDE 98 mmol/L (97-110); Estimated GFR 7 mL/min (>60); GLUCOSE 279 mg/dl (70-220); POTASSIUM 5.1 mmol/L (3.5-5.1); SODIUM 137 mmol/L (135-144)
[2018-12-02 07:51] LABS: PROSTATE SPECIFIC ANTIGEN < 0.1 ng/ml (0.0-4.0)
[2018-12-02] MEDS: NIFEdipine (XL) 60 MG TAB PO (08:23)
[2018-12-02] MEDS: LISINOPRIL 20 MG TAB PO (08:24)
[2018-12-02] MEDS: BROMFENAC SODIUM 1.7 ML OPH DROP BOTH EYES (08:25)
[2018-12-02] MEDS: PREDNISOLONE ACET 1% 5 ML OPH BOTH EYES ×2 (08:26→20:32)
[2018-12-02] MEDS: INSULIN ASPART [NOVOLOG] 3 ML PEN SC ×7 (08:28→20:31)
[2018-12-02] MEDS: HEPARIN 5,000 UNIT/1 ML VIAL SC ×2 (08:29→20:30)
[2018-12-02] MEDS: HYDROCODONE/APAP (5/325) TAB PO (08:43)
[2018-12-02] MEDS: morphine 2 MG INJ IV (12:02)
[2018-12-02] MEDS: DIPHENHYDRAMINE 25 MG CAP PO ×2 (18:37→20:32)
[2018-12-02] MEDS: INSULIN GLARGINE [LANTus] (100 UNITS/ML) SYG SC (20:29)
[2018-12-02] MEDS: FAMOTIDINE 20 MG TAB PO (20:32)
[2018-12-02] MEDS: ATORVASTATIN 40 MG TAB PO (20:32)
[2018-12-03] MEDS: NIFEdipine (XL) 60 MG TAB PO (08:43)
[2018-12-03] MEDS: PREDNISOLONE ACET 1% 5 ML OPH BOTH EYES ×2 (08:43→20:30)
[2018-12-03] MEDS: LISINOPRIL 20 MG TAB PO (08:43)
[2018-12-03] MEDS: INSULIN ASPART [NOVOLOG] 3 ML PEN SC ×7 (08:45→20:30)
[2018-12-03] MEDS: HEPARIN 5,000 UNIT/1 ML VIAL SC ×2 (08:46→20:33)
[2018-12-03] MEDS: morphine 2 MG INJ IV ×2 (08:56→12:45)
[2018-12-03] MEDS: BROMFENAC SODIUM 1.7 ML OPH DROP BOTH EYES (08:56)
[2018-12-03] MEDS: BISACODYL (EC) 5 MG TAB PO (08:56)
[2018-12-03] MEDS: DIPHENHYDRAMINE 25 MG CAP PO ×2 (10:32→20:30)
[2018-12-03] MEDS: POLYETHYLENE GLYCOL 17 GM PACKET PO (12:50)
[2018-12-03] MEDS: DOCUSATE SODIUM 100 MG CAP PO (12:50)
[2018-12-03] MEDS: ATORVASTATIN 40 MG TAB PO (20:31)
[2018-12-03] MEDS: INSULIN GLARGINE [LANTus] (100 UNITS/ML) SYG SC (20:32)
[2018-12-03] MEDS: ACCU-CHEK XX (20:33)
[2018-12-03] MEDS: FAMOTIDINE 20 MG TAB PO (20:33)
[2018-12-04] MEDS: INSULIN ASPART [NOVOLOG] 3 ML PEN SC ×7 (08:00→20:29)
[2018-12-04] MEDS: LISINOPRIL 20 MG TAB PO (08:39)
[2018-12-04] MEDS: NIFEdipine (XL) 60 MG TAB PO (08:39)
[2018-12-04] MEDS: BROMFENAC SODIUM 1.7 ML OPH DROP BOTH EYES (08:40)
[2018-12-04] MEDS: PREDNISOLONE ACET 1% 5 ML OPH BOTH EYES ×2 (08:41→20:30)
[2018-12-04] MEDS: HEPARIN 5,000 UNIT/1 ML VIAL SC ×2 (08:44→20:29)
[2018-12-04] MEDS: morphine 2 MG INJ IV (09:07)
[2018-12-04] MEDS: DIPHENHYDRAMINE 25 MG CAP PO (14:39)
[2018-12-04] MEDS: INSULIN GLARGINE [LANTus] (100 UNITS/ML) SYG SC (20:28)
[2018-12-04] MEDS: ATORVASTATIN 40 MG TAB PO (20:30)
[2018-12-04] MEDS: FAMOTIDINE 20 MG TAB PO (20:30)
[2018-12-04] MEDS: HYDROCODONE/APAP (5/325) TAB PO (20:59)
[2018-12-05] MEDS: ACCU-CHEK XX (02:23)
[2018-12-05] MEDS: HYDROCODONE/APAP (5/325) TAB PO (05:20)
[2018-12-05 07:26] LABS: ANION GAP 14 (5-13); BLOOD UREA NITROGEN 63 mg/dl (7-20); CALCIUM 9.9 mg/dl (8.4-10.2); CARBON DIOXIDE 27 mmol/L (21-31); CHLORIDE 99 mmol/L (97-110); CREATININE 9.97 mg/dl (0.61-1.24); Estimated GFR 6 mL/min (>60); GLUCOSE 135 mg/dl (70-220); POTASSIUM 5.3 mmol/L (3.5-5.1); SODIUM 140 mmol/L (135-144)
[2018-12-05] MEDS: INSULIN ASPART [NOVOLOG] 3 ML PEN SC ×7 (08:00→21:00)
[2018-12-05] MEDS: HEPARIN 5,000 UNIT/1 ML VIAL SC ×2 (08:39→20:42)
[2018-12-05] MEDS: PREDNISOLONE ACET 1% 5 ML OPH BOTH EYES ×2 (08:40→20:10)
[2018-12-05] MEDS: LISINOPRIL 20 MG TAB PO (08:42)
[2018-12-05] MEDS: NIFEdipine (XL) 60 MG TAB PO (08:42)
[2018-12-05] MEDS: BROMFENAC SODIUM 1.7 ML OPH DROP BOTH EYES (09:29)
[2018-12-05] MEDS: DIPHENHYDRAMINE 25 MG CAP PO ×2 (09:30→20:10)
[2018-12-05] MEDS: FAMOTIDINE 20 MG TAB PO (20:10)
[2018-12-05] MEDS: morphine 2 MG INJ IV (20:10)
[2018-12-05] MEDS: INSULIN GLARGINE [LANTus] (100 UNITS/ML) SYG SC (20:41)
[2018-12-05] MEDS: ATORVASTATIN 40 MG TAB PO (20:47)
[2018-12-06] MEDS: ACCU-CHEK XX (01:54)
[2018-12-06] MEDS: morphine 2 MG INJ IV ×2 (05:51→13:17)
[2018-12-06] MEDS: INSULIN ASPART [NOVOLOG] 3 ML PEN SC ×7 (08:00→20:39)
[2018-12-06] MEDS: BROMFENAC SODIUM 1.7 ML OPH DROP BOTH EYES (08:48)
[2018-12-06] MEDS: PREDNISOLONE ACET 1% 5 ML OPH BOTH EYES ×2 (08:49→20:38)
[2018-12-06] MEDS: LISINOPRIL 20 MG TAB PO (08:50)
[2018-12-06] MEDS: NIFEdipine (XL) 60 MG TAB PO (08:50)
[2018-12-06] MEDS: HEPARIN 5,000 UNIT/1 ML VIAL SC ×2 (08:51→20:43)
[2018-12-06] MEDS: DIPHENHYDRAMINE 25 MG CAP PO (09:01)
[2018-12-06 11:57] LABS: ANION GAP 17 (5-13); BLOOD UREA NITROGEN 77 mg/dl (7-20); CALCIUM 10.1 mg/dl (8.4-10.2); CARBON DIOXIDE 24 mmol/L (21-31); CHLORIDE 101 mmol/L (97-110); CREATININE 12.42 mg/dl (0.61-1.24); Estimated GFR 5 mL/min (>60); GLUCOSE 137 mg/dl (70-220); POTASSIUM 5.1 mmol/L (3.5-5.1); SODIUM 142 mmol/L (135-144)
[2018-12-06] MEDS: INSULIN GLARGINE [LANTus] (100 UNITS/ML) SYG SC (20:36)
[2018-12-06] MEDS: ATORVASTATIN 40 MG TAB PO (20:39)
[2018-12-06] MEDS: FAMOTIDINE 20 MG TAB PO (20:39)
[2018-12-07] MEDS: ACCU-CHEK XX (02:00)
[2018-12-07] MEDS: INSULIN ASPART [NOVOLOG] 3 ML PEN SC ×7 (08:06→20:21)
[2018-12-07] MEDS: NIFEdipine (XL) 60 MG TAB PO (08:46)
[2018-12-07] MEDS: HEPARIN 5,000 UNIT/1 ML VIAL SC ×2 (08:47→20:23)
[2018-12-07] MEDS: LISINOPRIL 20 MG TAB PO (08:47)
[2018-12-07] MEDS: PREDNISOLONE ACET 1% 5 ML OPH BOTH EYES ×2 (08:47→20:22)
[2018-12-07] MEDS: BROMFENAC SODIUM 1.7 ML OPH DROP BOTH EYES (08:47)
[2018-12-07 15:05] LABS: ADD MAN DIFF? NO
[2018-12-07 15:07] LABS: BASOPHIL # 0.1 10^3/ul (0.0-0.1); BASOPHILS % 0.8 % (0.0-2.0); EOSINOPHILS # 0.2 10^3/ul (0.0-0.5); EOSINOPHILS % 3.2 % (0.0-7.0); HEMATOCRIT 39.1 % (42.0-52.0); HEMOGLOBIN 12.3 g/dl (14.0-18.0); LYMPHOCYTES # 1.3 10^3/ul (0.8-2.9); LYMPHOCYTES % 22.1 % (15.0-51.0); MEAN CORPUSCULAR HEMOGLOBIN 26.7 pg (29.0-33.0); MEAN CORPUSCULAR HGB CONC 31.5 g/dl (32.0-37.0); MEAN PLATELET VOLUME 10.3 fl (7.4-10.4); MONOCYTE # 0.5 10^3/ul (0.3-0.9); MONOCYTES % 8.3 % (0.0-11.0); NEUTROPHIL # 3.9 10^3/ul (1.6-7.5); NEUTROPHILS % 65.4 % (39.0-77.0); PLATELET COUNT 239 10^3/UL (140-415); RED CELL DISTRIBUTION WIDTH 14.4 % (11.5-14.5)
[2018-12-07 15:07] LABS: WHITE BLOOD COUNT 5.9 10^3/ul (4.8-10.8)
[2018-12-07 15:33] LABS: ANION GAP 15 (5-13); BLOOD UREA NITROGEN 63 mg/dl (7-20); CALCIUM 10.2 mg/dl (8.4-10.2); CARBON DIOXIDE 30 mmol/L (21-31); CHLORIDE 98 mmol/L (97-110); CREATININE 9.51 mg/dl (0.61-1.24); Estimated GFR 7 mL/min (>60); GLUCOSE 147 mg/dl (70-220); POTASSIUM 5.8 mmol/L (3.5-5.1); SODIUM 143 mmol/L (135-144)
[2018-12-07 15:46] LABS: LACTIC ACID 2.7 mmol/L (0.5-2.0)
[2018-12-07] MEDS: SODIUM POLYSTYRENE 15 GM KIT (POWDER + SORBITOL) GTB (16:35)
[2018-12-07] MEDS: CEFEPIME 1GM/50 ML (PMX) 50 ML IVPB (18:05)
[2018-12-07 18:27] LABS: ADD UMIC YES; UR ASCORBIC ACID NEGATIVE (NEGATIVE); UR BACTERIA FEW /HPF (NONE SEEN); UR BILIRUBIN (Dip) NEGATIVE (NEGATIVE); UR BLOOD (Dip) 1+ mg/dL (NEGATIVE); UR CLARITY CLEAR (CLEAR); UR COLOR YELLOW (YELLOW); UR GLUCOSE (Dip) 1+ mg/dL (NEGATIVE); UR KETONES (Dip) NEGATIVE (NEGATIVE); UR LEUKOCYTE ESTERASE (Dip) NEGATIVE Leu/ul (NEGATIVE); UR NITRITE (Dip) NEGATIVE (NEGATIVE); UR RBC 1 /HPF (0-5); UR SPECIFIC GRAVITY (Dip) 1.013 (1.003-1.030); UR TOTAL PROTEIN (Dip) 2+ mg/dl (NEGATIVE); UR UROBILINOGEN (Dip) NEGATIVE (NEGATIVE); UR WBC 2 /HPF (0-5)
[2018-12-07] MEDS: morphine 2 MG INJ IV (20:16)
[2018-12-07] MEDS: ATORVASTATIN 40 MG TAB PO (20:22)
[2018-12-07] MEDS: FAMOTIDINE 20 MG TAB PO (20:22)
[2018-12-07] MEDS: INSULIN GLARGINE [LANTus] (100 UNITS/ML) SYG SC (20:24)
[2018-12-07] MEDS: POLYETHYLENE GLYCOL 17 GM PACKET PO (21:25)
[2018-12-07] MEDS: ONDANSETRON 4 MG INJ IV (21:25)
[2018-12-08] MEDS: ACCU-CHEK XX (02:00)
[2018-12-08 06:01] LABS: ADD MAN DIFF? NO
[2018-12-08 06:15] LABS: ANION GAP 13 (5-13); BLOOD UREA NITROGEN 71 mg/dl (7-20); CALCIUM 9.8 mg/dl (8.4-10.2); CARBON DIOXIDE 30 mmol/L (21-31); CHLORIDE 100 mmol/L (97-110); CREATININE 11.33 mg/dl (0.61-1.24); Estimated GFR 5 mL/min (>60); GLUCOSE 115 mg/dl (70-220); POTASSIUM 4.9 mmol/L (3.5-5.1); SODIUM 143 mmol/L (135-144)
[2018-12-08 06:15] LABS: LACTIC ACID 1.1 mmol/L (0.5-2.0)
[2018-12-08 06:16] LABS: WHITE BLOOD COUNT 6.1 10^3/ul (4.8-10.8)
[2018-12-08 06:16] LABS: BASOPHILS % 0.5 % (0.0-2.0); EOSINOPHILS # 0.2 10^3/ul (0.0-0.5); EOSINOPHILS % 3.9 % (0.0-7.0); HEMATOCRIT 34.1 % (42.0-52.0); HEMOGLOBIN 11.2 g/dl (14.0-18.0); LYMPHOCYTES # 1.8 10^3/ul (0.8-2.9); LYMPHOCYTES % 28.5 % (15.0-51.0); MEAN CORPUSCULAR HEMOGLOBIN 27.1 pg (29.0-33.0); MEAN CORPUSCULAR HGB CONC 32.8 g/dl (32.0-37.0); MEAN CORPUSCULAR VOLUME 82.4 fl (82.0-101.0); MEAN PLATELET VOLUME 10.1 fl (7.4-10.4); MONOCYTE # 0.5 10^3/ul (0.3-0.9); MONOCYTES % 8.5 % (0.0-11.0); NEUTROPHIL # 3.6 10^3/ul (1.6-7.5); NEUTROPHILS % 58.3 % (39.0-77.0); PLATELET COUNT 227 10^3/UL (140-415); RED BLOOD COUNT 4.14 10^6/ul (4.70-6.10); RED CELL DISTRIBUTION WIDTH 13.9 % (11.5-14.5)
[2018-12-08] MEDS: INSULIN ASPART [NOVOLOG] 3 ML PEN SC ×7 (08:00→20:32)
[2018-12-08] MEDS: PREDNISOLONE ACET 1% 5 ML OPH BOTH EYES ×2 (08:08→20:31)
[2018-12-08] MEDS: BROMFENAC SODIUM 1.7 ML OPH DROP BOTH EYES (08:09)
[2018-12-08] MEDS: HEPARIN 5,000 UNIT/1 ML VIAL SC ×2 (08:12→20:28)
[2018-12-08] MEDS: LISINOPRIL 20 MG TAB PO (09:00)
[2018-12-08] MEDS: NIFEdipine (XL) 60 MG TAB PO (09:00)
[2018-12-08] MEDS: HYDROCODONE/APAP (5/325) TAB PO (11:07)
[2018-12-08] MEDS: LACTULOSE 30ML CUP PO (15:29)
[2018-12-08] MEDS: BISACODYL (EC) 5 MG TAB PO ×2 (15:29→20:31)
[2018-12-08] MEDS: CEFEPIME 1GM/50 ML (PMX) 50 ML IVPB (16:01)
[2018-12-08] MEDS: INSULIN GLARGINE [LANTus] (100 UNITS/ML) SYG SC (20:28)
[2018-12-08] MEDS: FAMOTIDINE 20 MG TAB PO (20:31)
[2018-12-08] MEDS: ATORVASTATIN 40 MG TAB PO (20:31)
[2018-12-08] MEDS: morphine 2 MG INJ IV (21:06)
[2018-12-09] MEDS: ACCU-CHEK XX (01:37)
[2018-12-09] MEDS: BUPIVACAINE 0.5%/EPI (SDV) 30 ML INJ INJ (07:44)
[2018-12-09] MEDS: BETAMET NA PHOS/AC(6 MG/ML) 5ML INJ INJ (07:44)
[2018-12-09] MEDS: NIFEdipine (XL) 60 MG TAB PO (09:00)
[2018-12-09] MEDS: INSULIN ASPART [NOVOLOG] 3 ML PEN SC ×7 (09:01→21:00)
[2018-12-09] MEDS: LISINOPRIL 20 MG TAB PO (09:02)
[2018-12-09] MEDS: HEPARIN 5,000 UNIT/1 ML VIAL SC ×2 (09:03→21:26)
[2018-12-09] MEDS: PREDNISOLONE ACET 1% 5 ML OPH BOTH EYES ×2 (09:04→21:24)
[2018-12-09] MEDS: BROMFENAC SODIUM 1.7 ML OPH DROP BOTH EYES (09:04)
[2018-12-09] MEDS: SOD CHLORIDE 0.9% 1,000 ML IV (09:42)
[2018-12-09] MEDS ORDERED: hydrALAzine 20 MG INJ IV (10:30)
[2018-12-09] MEDS: CEFEPIME 1GM/50 ML (PMX) 50 ML IVPB (17:32)
[2018-12-09] MEDS: INSULIN GLARGINE [LANTus] (100 UNITS/ML) SYG SC ×2 (20:00→21:27)
[2018-12-09] MEDS: ATORVASTATIN 40 MG TAB PO (21:24)
[2018-12-09] MEDS: FAMOTIDINE 20 MG TAB PO (21:24)
[2018-12-10] MEDS: ACCU-CHEK XX (01:10)
[2018-12-10] MEDS: SOD CHLORIDE 0.9% 1,000 ML IV ×2 (05:30→11:01)
[2018-12-10] MEDS: INSULIN ASPART [NOVOLOG] 3 ML PEN SC ×7 (08:00→21:00)
[2018-12-10] MEDS: HEPARIN 5,000 UNIT/1 ML VIAL SC ×2 (08:01→21:07)
[2018-12-10] MEDS: PREDNISOLONE ACET 1% 5 ML OPH BOTH EYES ×2 (08:01→21:07)
[2018-12-10] MEDS: BROMFENAC SODIUM 1.7 ML OPH DROP BOTH EYES (08:02)
[2018-12-10] MEDS: DIPHENHYDRAMINE 25 MG CAP PO ×2 (08:09→21:10)
[2018-12-10 10:56] LABS: ALANINE AMINOTRANSFERASE 23 IU/L (13-69); ALBUMIN/GLOBULIN RATIO 1.08; ALKALINE PHOSPHATASE 162 IU/L (42-121); AMYLASE 148 U/L (11-123); ANION GAP 17 (5-13); ASPARTATE AMINO TRANSFERASE 24 IU/L (15-46); BILIRUBIN,INDIRECT 0.1 mg/dl (0-1.1); BILIRUBIN,TOTAL 0.1 mg/dl (0.2-1.3); BLOOD UREA NITROGEN 63 mg/dl (7-20); CALCIUM 10.5 mg/dl (8.4-10.2); CARBON DIOXIDE 29 mmol/L (21-31); CHLORIDE 99 mmol/L (97-110); CREATININE 12.16 mg/dl (0.61-1.24); Estimated GFR 5 mL/min (>60); GLUCOSE 119 mg/dl (70-220); LIPASE 160 U/L (23-300); POTASSIUM 5.6 mmol/L (3.5-5.1); SODIUM 145 mmol/L (135-144); TOTAL PROTEIN 9.6 g/dl (6.1-8.1)
[2018-12-10] MEDS: SODIUM POLYSTYRENE 15 GM KIT (POWDER + SORBITOL) PO (12:17)
[2018-12-10] MEDS: CEFEPIME 1GM/50 ML (PMX) 50 ML IVPB (17:20)
[2018-12-10] MEDS: FAMOTIDINE 20 MG TAB PO (20:53)
[2018-12-10] MEDS: ATORVASTATIN 40 MG TAB PO (20:53)
[2018-12-10] MEDS: ACETAMINOPHEN 325 MG TAB PO (21:03)
[2018-12-10 21:12] LABS: POTASSIUM 4.8 mmol/L (3.5-5.1)
[2018-12-10] MEDS: INSULIN GLARGINE [LANTus] (100 UNITS/ML) SYG SC (22:49)
[2018-12-11] MEDS: DEXTROSE 5%-0.45% NACL 1,000 ML IV (00:42)
[2018-12-11] MEDS: INSULIN ASPART [NOVOLOG] 3 ML PEN SC ×9 (01:00→20:25)
[2018-12-11] MEDS: ACCU-CHEK XX (01:20)
[2018-12-11 07:57] LABS: ANION GAP 16 (5-13); BLOOD UREA NITROGEN 63 mg/dl (7-20); CALCIUM 9.5 mg/dl (8.4-10.2); CARBON DIOXIDE 23 mmol/L (21-31); CHLORIDE 103 mmol/L (97-110); CREATININE 12.69 mg/dl (0.61-1.24); Estimated GFR 5 mL/min (>60); GLUCOSE 60 mg/dl (70-220); POTASSIUM 4.2 mmol/L (3.5-5.1); SODIUM 142 mmol/L (135-144)
[2018-12-11] MEDS: HEPARIN 5,000 UNIT/1 ML VIAL SC ×2 (09:00→20:22)
[2018-12-11] MEDS: BROMFENAC SODIUM 1.7 ML OPH DROP BOTH EYES (09:00)
[2018-12-11] MEDS: PREDNISOLONE ACET 1% 5 ML OPH BOTH EYES ×2 (09:09→20:23)
[2018-12-11] MEDS: DEXTROSE 50% 50 ML SYRINGE IV (09:16)
[2018-12-11] MEDS: DEXTROSE 10%/0.45% NACL 1,000 ML IV (10:13)
[2018-12-11] MEDS ORDERED: PROPOFOL 40 ML (14:42)
[2018-12-11] MEDS ORDERED: LIDOCAINE 2% (SDV) 5 ML INJ (14:42)
[2018-12-11] MEDS ORDERED: MEPERIDINE 25 MG INJ IV (15:30)
[2018-12-11] MEDS ORDERED: ONDANSETRON 4 MG INJ IV (15:30)
[2018-12-11] MEDS ORDERED: DIPHENHYDRAMINE 50 MG INJ IV (15:30)
[2018-12-11] MEDS ORDERED: FENTAnyl 50 MCG/ML VIAL IV (15:30)
[2018-12-11] MEDS: CEFEPIME 1GM/50 ML (PMX) 50 ML IVPB (16:58)
[2018-12-11] MEDS: ACETAMINOPHEN 325 MG TAB PO (18:45)
[2018-12-11] MEDS: ATORVASTATIN 40 MG TAB PO (20:23)
[2018-12-11] MEDS: METOCLOPRAMIDE 5 MG TAB PO (20:25)
[2018-12-11] MEDS: INSULIN GLARGINE [LANTus] (100 UNITS/ML) SYG SC (20:27)
[2018-12-12] MEDS: ACCU-CHEK XX (02:00)
[2018-12-12] MEDS: PANTOPRAZOLE (EC) 40 MG TAB PO ×2 (06:20→20:28)
[2018-12-12] MEDS: GLUCOSE GEL 15 GRAM TUBE BUCCAL (06:22)
[2018-12-12] MEDS: INSULIN ASPART [NOVOLOG] 3 ML PEN SC ×7 (09:04→20:30)
[2018-12-12] MEDS: METOCLOPRAMIDE 5 MG TAB PO ×3 (10:16→20:27)
[2018-12-12] MEDS: PREDNISOLONE ACET 1% 5 ML OPH BOTH EYES ×2 (10:16→20:28)
[2018-12-12] MEDS: HEPARIN 5,000 UNIT/1 ML VIAL SC ×2 (10:17→20:31)
[2018-12-12] MEDS: BROMFENAC SODIUM 1.7 ML OPH DROP BOTH EYES (10:21)
[2018-12-12] MEDS ORDERED: PANTOPRAZOLE (EC) 40 MG TAB PO (18:00)
[2018-12-12] MEDS: ATORVASTATIN 40 MG TAB PO (20:27)
[2018-12-12] MEDS: INSULIN GLARGINE [LANTus] (100 UNITS/ML) SYG SC (20:29)
[2018-12-13] MEDS: ACCU-CHEK XX (02:00)
[2018-12-13] MEDS: INSULIN ASPART [NOVOLOG] 3 ML PEN SC ×7 (07:30→21:00)
[2018-12-13] MEDS: PANTOPRAZOLE (EC) 40 MG TAB PO ×2 (08:37→21:11)
[2018-12-13] MEDS: METOCLOPRAMIDE 5 MG TAB PO ×3 (08:37→21:11)
[2018-12-13] MEDS: BROMFENAC SODIUM 1.7 ML OPH DROP BOTH EYES (08:38)
[2018-12-13] MEDS: PREDNISOLONE ACET 1% 5 ML OPH BOTH EYES ×2 (08:38→21:12)
[2018-12-13] MEDS: HEPARIN 5,000 UNIT/1 ML VIAL SC ×2 (08:39→21:14)
[2018-12-13] MEDS: BETAMET NA PHOS/AC(6 MG/ML) 5ML INJ INJ (20:48)
[2018-12-13] MEDS: BUPIVACAINE 0.5%/EPI (SDV) 30 ML INJ INJ (20:48)
[2018-12-13] MEDS: ATORVASTATIN 40 MG TAB PO (21:11)
[2018-12-13] MEDS: INSULIN GLARGINE [LANTus] (100 UNITS/ML) SYG SC (21:14)
[2018-12-14] MEDS: ACCU-CHEK XX (02:00)
[2018-12-14] MEDS: PANTOPRAZOLE (EC) 40 MG TAB PO ×2 (08:11→20:46)
[2018-12-14] MEDS: INSULIN ASPART [NOVOLOG] 3 ML PEN SC ×7 (08:12→20:43)
[2018-12-14] MEDS: HEPARIN 5,000 UNIT/1 ML VIAL SC ×2 (08:13→20:42)
[2018-12-14] MEDS: METOCLOPRAMIDE 5 MG TAB PO ×3 (08:15→20:46)
[2018-12-14] MEDS: BROMFENAC SODIUM 1.7 ML OPH DROP BOTH EYES (08:16)
[2018-12-14] MEDS: PREDNISOLONE ACET 1% 5 ML OPH BOTH EYES ×2 (08:16→20:46)
[2018-12-14] MEDS: INSULIN GLARGINE [LANTus] (100 UNITS/ML) SYG SC (20:44)
[2018-12-14] MEDS: ATORVASTATIN 40 MG TAB PO (20:46)
[2018-12-15] MEDS: ACCU-CHEK XX (02:17)
[2018-12-15] MEDS: PANTOPRAZOLE (EC) 40 MG TAB PO ×2 (08:36→20:35)
[2018-12-15] MEDS: PREDNISOLONE ACET 1% 5 ML OPH BOTH EYES ×2 (08:37→20:35)
[2018-12-15] MEDS: METOCLOPRAMIDE 5 MG TAB PO ×3 (08:37→20:35)
[2018-12-15] MEDS: BROMFENAC SODIUM 1.7 ML OPH DROP BOTH EYES (08:38)
[2018-12-15] MEDS: HEPARIN 5,000 UNIT/1 ML VIAL SC ×2 (08:39→20:34)
[2018-12-15] MEDS: INSULIN ASPART [NOVOLOG] 3 ML PEN SC ×7 (08:40→20:33)
[2018-12-15] MEDS: INSULIN GLARGINE [LANTus] (100 UNITS/ML) SYG SC (20:33)
[2018-12-15] MEDS: ATORVASTATIN 40 MG TAB PO (20:35)
== END 2018-12-15 22:43 | disposition home health service (06) | DRG 551 ==
LOC: FTE 10:23 → PP2 13:26
PROC: 0DB58ZX Excision of Esophagus, Via Natural or Artificial Opening Endoscopic, Diagnostic (ICD-10-PCS; principal; 2018-12-11 14:00)
PROC: 0DB68ZX Excision of Stomach, Via Natural or Artificial Opening Endoscopic, Diagnostic (ICD-10-PCS; 2018-12-11 14:00)
PROC: 5A1D70Z Performance of Urinary Filtration, Intermittent, Less than 6 Hours Per Day (ICD-10-PCS; 2018-12-11 14:00)
PROC: 3E0U33Z Introduction of Anti-inflammatory into Joints, Percutaneous Approach (ICD-10-PCS; 2018-12-11 14:00)
DX: M54.9 Dorsalgia, unspecified (principal); N18.6 End stage renal disease; K85.90 Acute pancreatitis without necrosis or infection, unspecified; I12.0 Hypertensive chronic kidney disease with stage 5 chronic kidney disease or end stage renal disease; M48.061 Spinal stenosis, lumbar region without neurogenic claudication; M51.46 Schmorl's nodes, lumbar region; E11.65 Type 2 diabetes mellitus with hyperglycemia; E11.22 Type 2 diabetes mellitus with diabetic chronic kidney disease; Z99.2 Dependence on renal dialysis; K20.9 Esophagitis, unspecified; K29.70 Gastritis, unspecified, without bleeding; Z85.46 Personal history of malignant neoplasm of prostate; K59.00 Constipation, unspecified; E16.2 Hypoglycemia, unspecified; Z95.0 Presence of cardiac pacemaker; M75.42 Impingement syndrome of left shoulder; E11.43 Type 2 diabetes mellitus with diabetic autonomic (poly)neuropathy; K31.84 Gastroparesis
CPT/HCPCS: 36415; 71045; 72040; 72131; 73030; 74176; 76700; 76775; 80048; 80053; 81001; 82150; 82947; 82962; 83036; 83605; 83690; 84132; 84153; 84154; 85025; 87040-91; 87086; 87340; 88305; 88312; 88313; 90935; 93005; 97110; 97116; 97161; 97167; 97530; 97535; 99285-25

== ENCOUNTER 2019-02-02 03:16 | Inpatient (IN) | payer MEDICARE, MEDICAID ==
[2019-02-02 08:29] LABS: ADD MAN DIFF? NO
[2019-02-02] MEDS: MECLIZINE 12.5 MG TAB PO (08:32)
[2019-02-02] MEDS: ONDANSETRON 4 MG INJ IV (08:33)
[2019-02-02 08:36] LABS: BASOPHILS % 0.4 % (0.0-2.0); EOSINOPHILS # 0.2 10^3/ul (0.0-0.5); HEMATOCRIT 35.4 % (42.0-52.0); HEMOGLOBIN 11.6 g/dl (14.0-18.0); LYMPHOCYTES # 1.6 10^3/ul (0.8-2.9); LYMPHOCYTES % 19.6 % (15.0-51.0); MEAN CORPUSCULAR HEMOGLOBIN 26.2 pg (29.0-33.0); MEAN CORPUSCULAR HGB CONC 32.8 g/dl (32.0-37.0); MEAN CORPUSCULAR VOLUME 79.9 fl (82.0-101.0); MEAN PLATELET VOLUME 9.8 fl (7.4-10.4); MONOCYTE # 0.6 10^3/ul (0.3-0.9); MONOCYTES % 7.2 % (0.0-11.0); NEUTROPHIL # 5.6 10^3/ul (1.6-7.5); NEUTROPHILS % 69.6 % (39.0-77.0); PLATELET COUNT 250 10^3/UL (140-415); RED BLOOD COUNT 4.43 10^6/ul (4.70-6.10); RED CELL DISTRIBUTION WIDTH 14.8 % (11.5-14.5)
[2019-02-02 08:48] LABS: ALANINE AMINOTRANSFERASE 27 IU/L (13-69); ALBUMIN 4.3 g/dl (3.3-4.9); ALBUMIN/GLOBULIN RATIO 1.22; ALKALINE PHOSPHATASE 201 IU/L (42-121); ANION GAP 17 (5-13); ASPARTATE AMINO TRANSFERASE 22 IU/L (15-46); BILIRUBIN,INDIRECT 0.1 mg/dl (0-1.1); BILIRUBIN,TOTAL 0.1 mg/dl (0.2-1.3); BLOOD UREA NITROGEN 75 mg/dl (7-20); CALCIUM 9.8 mg/dl (8.4-10.2); CARBON DIOXIDE 23 mmol/L (21-31); CHLORIDE 100 mmol/L (97-110); CREATINE KINASE 210 IU/L (23-200); CREATININE 11.13 mg/dl (0.61-1.24); Estimated GFR 6 mL/min (>60); GLUCOSE 341 mg/dl (70-220); MAGNESIUM 1.9 mg/dl (1.7-2.5); PHOSPHORUS 6.9 mg/dl (2.5-4.9); POTASSIUM 5.3 mmol/L (3.5-5.1); SODIUM 140 mmol/L (135-144); TOTAL PROTEIN 7.8 g/dl (6.1-8.1)
[2019-02-02 08:57] LABS: INR 0.99; PROTIME 13.2 Sec (11.9-14.9)
[2019-02-02 08:58] LABS: PARTIAL THROMBOPLASTIN TIME 24.5 Sec (23.0-35.0)
[2019-02-02 09:00] LABS: CK INDEX 0.7; CK-MB 1.49 ng/ml (0.0-2.4); TROPONIN-I < 0.012 ng/ml (0.000-0.120)
[2019-02-02] MEDS ORDERED: ACETAMINOPHEN 325 MG TAB PO (11:00)
[2019-02-02] MEDS ORDERED: ONDANSETRON 4 MG INJ IV (11:00)
[2019-02-02] MEDS ORDERED: ALBUMIN HUMAN 25% 100 ML IV (12:00)
[2019-02-02] MEDS ORDERED: SODIUM CHLORIDE 0.9% 1L BAG IV (12:00)
[2019-02-02 15:15] LABS: HEPATITIS B SURFACE ANTIGEN NEGATIVE (NEGATIVE)
[2019-02-02 18:18] LABS: CHOLESTEROL 117 mg/dl (100-200)
[2019-02-02 18:18] LABS: CHOL/HDL RATIO 2.6 RATIO; HDL CHOLESTEROL 44 mg/dl (30-78); LDL CHOLESTEROL,CALCULATED 54 mg/dl; TRIGLYCERIDES 93 mg/dl (0-149)
[2019-02-02] MEDS: PREDNISOLONE ACET 1% 5 ML OPH RIGHT EYE (22:00)
[2019-02-02] MEDS: DICYCLOMINE 10 MG CAP PO (22:00)
[2019-02-02] MEDS ORDERED: GLUCOSE GEL 15 GRAM TUBE BUCCAL (22:30)
[2019-02-02] MEDS ORDERED: DEXTROSE 50% 50 ML SYRINGE IV ×2 (22:30)
[2019-02-02] MEDS ORDERED: GLUCOSE GEL 15 GRAM TUBE PO ×2 (22:30)
[2019-02-02] MEDS ORDERED: GLUCAGON 1 MG INJ IM (22:30)
[2019-02-03] MEDS: DICYCLOMINE 10 MG CAP PO ×3 (06:16→22:29)
[2019-02-03 06:24] LABS: ADD MAN DIFF? NO
[2019-02-03 06:27] LABS: BASOPHIL # 0.1 10^3/ul (0.0-0.1); BASOPHILS % 0.8 % (0.0-2.0); EOSINOPHILS # 0.3 10^3/ul (0.0-0.5); EOSINOPHILS % 4.2 % (0.0-7.0); HEMATOCRIT 38.2 % (42.0-52.0); HEMOGLOBIN 12.4 g/dl (14.0-18.0); LYMPHOCYTES # 1.3 10^3/ul (0.8-2.9); LYMPHOCYTES % 18.7 % (15.0-51.0); MEAN CORPUSCULAR HEMOGLOBIN 26.1 pg (29.0-33.0); MEAN CORPUSCULAR HGB CONC 32.5 g/dl (32.0-37.0); MEAN CORPUSCULAR VOLUME 80.4 fl (82.0-101.0); MEAN PLATELET VOLUME 10.3 fl (7.4-10.4); MONOCYTE # 0.7 10^3/ul (0.3-0.9); MONOCYTES % 9.8 % (0.0-11.0); NEUTROPHIL # 4.7 10^3/ul (1.6-7.5); NEUTROPHILS % 66.1 % (39.0-77.0); PLATELET COUNT 243 10^3/UL (140-415); RED BLOOD COUNT 4.75 10^6/ul (4.70-6.10); RED CELL DISTRIBUTION WIDTH 14.6 % (11.5-14.5)
[2019-02-03 06:27] LABS: WHITE BLOOD COUNT 7.1 10^3/ul (4.8-10.8)
[2019-02-03 06:53] LABS: ANION GAP 16 (5-13); BLOOD UREA NITROGEN 59 mg/dl (7-20); CARBON DIOXIDE 24 mmol/L (21-31); CHLORIDE 100 mmol/L (97-110); CREATININE 9.41 mg/dl (0.61-1.24); Estimated GFR 7 mL/min (>60); GLUCOSE 211 mg/dl (70-220); POTASSIUM 5.1 mmol/L (3.5-5.1); SODIUM 140 mmol/L (135-144)
[2019-02-03] MEDS: glipiZIDE 5 MG TAB PO (07:25)
[2019-02-03] MEDS ORDERED: INSULIN LISPRO 100 UNIT/ML VIAL SC (07:55)
[2019-02-03] MEDS: LISINOPRIL 20 MG TAB PO (09:46)
[2019-02-03] MEDS: valACYclovir 500 MG TAB PO ×3 (09:46→20:15)
[2019-02-03] MEDS: PREDNISOLONE ACET 1% 5 ML OPH RIGHT EYE ×4 (09:46→20:15)
[2019-02-03] MEDS: INSULIN ASPART [NOVOLOG] 3 ML PEN SC ×3 (09:49→17:51)
[2019-02-03] MEDS ORDERED: NITROGLYCERIN (SL) 0.4 MG TAB SL (18:00)
[2019-02-03] MEDS: ATORVASTATIN 40 MG TAB PO (20:15)
[2019-02-03] MEDS: INSULIN GLARGINE [LANTus] (100 UNITS/ML) SYG SC (20:19)
[2019-02-04] MEDS: DICYCLOMINE 10 MG CAP PO ×3 (05:58→21:27)
[2019-02-04 06:34] LABS: ADD MAN DIFF? NO
[2019-02-04 06:41] LABS: WHITE BLOOD COUNT 7.1 10^3/ul (4.8-10.8)
[2019-02-04 06:41] LABS: BASOPHILS % 0.6 % (0.0-2.0); EOSINOPHILS # 0.4 10^3/ul (0.0-0.5); EOSINOPHILS % 5.8 % (0.0-7.0); HEMATOCRIT 36.3 % (42.0-52.0); HEMOGLOBIN 11.9 g/dl (14.0-18.0); LYMPHOCYTES # 1.7 10^3/ul (0.8-2.9); LYMPHOCYTES % 23.4 % (15.0-51.0); MEAN CORPUSCULAR HEMOGLOBIN 25.8 pg (29.0-33.0); MEAN CORPUSCULAR HGB CONC 32.8 g/dl (32.0-37.0); MEAN CORPUSCULAR VOLUME 78.7 fl (82.0-101.0); MONOCYTE # 0.6 10^3/ul (0.3-0.9); MONOCYTES % 8.8 % (0.0-11.0); NEUTROPHIL # 4.3 10^3/ul (1.6-7.5); NEUTROPHILS % 61.1 % (39.0-77.0); PLATELET COUNT 254 10^3/UL (140-415); RED BLOOD COUNT 4.61 10^6/ul (4.70-6.10); RED CELL DISTRIBUTION WIDTH 14.7 % (11.5-14.5)
[2019-02-04 07:21] LABS: MAGNESIUM 1.8 mg/dl (1.7-2.5)
[2019-02-04 07:34] LABS: ALANINE AMINOTRANSFERASE 21 IU/L (13-69); ALBUMIN/GLOBULIN RATIO 1.17; ALKALINE PHOSPHATASE 130 IU/L (42-121); ANION GAP 18 (5-13); ASPARTATE AMINO TRANSFERASE 17 IU/L (15-46); BILIRUBIN,INDIRECT 0.1 mg/dl (0-1.1); BILIRUBIN,TOTAL 0.1 mg/dl (0.2-1.3); BLOOD UREA NITROGEN 79 mg/dl (7-20); CALCIUM 9.4 mg/dl (8.4-10.2); CARBON DIOXIDE 21 mmol/L (21-31); CHLORIDE 99 mmol/L (97-110); CREATININE 10.91 mg/dl (0.61-1.24); Estimated GFR 6 mL/min (>60); GLUCOSE 173 mg/dl (70-220); POTASSIUM 5.1 mmol/L (3.5-5.1); SODIUM 138 mmol/L (135-144); TOTAL PROTEIN 7.4 g/dl (6.1-8.1)
[2019-02-04] MEDS: glipiZIDE 5 MG TAB PO (07:46)
[2019-02-04] MEDS: INSULIN ASPART [NOVOLOG] 3 ML PEN SC ×3 (07:50→17:45)
[2019-02-04] MEDS: PREDNISOLONE ACET 1% 5 ML OPH RIGHT EYE ×3 (08:45→17:42)
[2019-02-04] MEDS: valACYclovir 500 MG TAB PO ×3 (08:47→20:13)
[2019-02-04] MEDS: LISINOPRIL 20 MG TAB PO (08:49)
[2019-02-04] MEDS: ATORVASTATIN 40 MG TAB PO (20:13)
[2019-02-04] MEDS: INSULIN GLARGINE [LANTus] (100 UNITS/ML) SYG SC (20:17)
[2019-02-04] MEDS: GUAIFENESIN/DM 5ML CUP PO (22:06)
[2019-02-05] MEDS: PREDNISOLONE ACET 1% 5 ML OPH RIGHT EYE ×5 (00:10→21:00)
[2019-02-05] MEDS: GUAIFENESIN/DM 5ML CUP PO ×2 (04:38→17:47)
[2019-02-05] MEDS: DICYCLOMINE 10 MG CAP PO ×3 (06:10→22:59)
[2019-02-05] MEDS: glipiZIDE 5 MG TAB PO (07:53)
[2019-02-05] MEDS: INSULIN ASPART [NOVOLOG] 3 ML PEN SC ×3 (07:58→17:46)
[2019-02-05] MEDS: valACYclovir 500 MG TAB PO ×3 (09:00→20:20)
[2019-02-05] MEDS: LISINOPRIL 20 MG TAB PO (12:52)
[2019-02-05] MEDS: ASPIRIN (EC) 81 MG TAB PO (14:24)
[2019-02-05] MEDS: DONEPEZIL 5 MG TAB PO (20:20)
[2019-02-05] MEDS: ATORVASTATIN 40 MG TAB PO (20:20)
[2019-02-05] MEDS: INSULIN GLARGINE [LANTus] (100 UNITS/ML) SYG SC ×2 (20:22→23:07)
[2019-02-06] MEDS: DICYCLOMINE 10 MG CAP PO ×3 (06:38→21:39)
[2019-02-06] MEDS: glipiZIDE 5 MG TAB PO (06:45)
[2019-02-06 07:18] LABS: ADD MAN DIFF? NO
[2019-02-06 07:20] LABS: WHITE BLOOD COUNT 7.8 10^3/ul (4.8-10.8)
[2019-02-06 07:21] LABS: BASOPHIL # 0.1 10^3/ul (0.0-0.1); BASOPHILS % 0.8 % (0.0-2.0); EOSINOPHILS # 0.3 10^3/ul (0.0-0.5); EOSINOPHILS % 3.2 % (0.0-7.0); HEMATOCRIT 40.1 % (42.0-52.0); HEMOGLOBIN 13.1 g/dl (14.0-18.0); LYMPHOCYTES % 25.3 % (15.0-51.0); MEAN CORPUSCULAR HEMOGLOBIN 25.9 pg (29.0-33.0); MEAN CORPUSCULAR HGB CONC 32.7 g/dl (32.0-37.0); MEAN CORPUSCULAR VOLUME 79.2 fl (82.0-101.0); MEAN PLATELET VOLUME 10.2 fl (7.4-10.4); MONOCYTE # 0.7 10^3/ul (0.3-0.9); MONOCYTES % 9.5 % (0.0-11.0); NEUTROPHIL # 4.8 10^3/ul (1.6-7.5); NEUTROPHILS % 60.9 % (39.0-77.0); PLATELET COUNT 229 10^3/UL (140-415); RED BLOOD COUNT 5.06 10^6/ul (4.70-6.10); RED CELL DISTRIBUTION WIDTH 14.9 % (11.5-14.5)
[2019-02-06 07:55] LABS: ANION GAP 15 (5-13); BLOOD UREA NITROGEN 51 mg/dl (7-20); CALCIUM 9.9 mg/dl (8.4-10.2); CARBON DIOXIDE 23 mmol/L (21-31); CHLORIDE 98 mmol/L (97-110); CREATININE 8.43 mg/dl (0.61-1.24); Estimated GFR 8 mL/min (>60); GLUCOSE 297 mg/dl (70-220); POTASSIUM 5.7 mmol/L (3.5-5.1); SODIUM 136 mmol/L (135-144)
[2019-02-06] MEDS: INSULIN ASPART [NOVOLOG] 3 ML PEN SC ×3 (08:05→18:48)
[2019-02-06] MEDS: valACYclovir 500 MG TAB PO ×3 (08:46→21:40)
[2019-02-06] MEDS: ASPIRIN (EC) 81 MG TAB PO (08:46)
[2019-02-06] MEDS: LISINOPRIL 20 MG TAB PO (08:46)
[2019-02-06] MEDS: PREDNISOLONE ACET 1% 5 ML OPH RIGHT EYE ×4 (08:47→21:41)
[2019-02-06] MEDS: GUAIFENESIN/DM 5ML CUP PO (11:38)
[2019-02-06 16:20] LABS: CREATINE KINASE 185 IU/L (23-200)
[2019-02-06 16:34] LABS: CK INDEX 0.5; CK-MB 0.86 ng/ml (0.0-2.4); TROPONIN-I < 0.012 ng/ml (0.000-0.120)
[2019-02-06 21:00] LABS: TROPONIN-I < 0.012 ng/ml (0.000-0.120)
[2019-02-06] MEDS: INSULIN GLARGINE [LANTus] (100 UNITS/ML) SYG SC (21:00)
[2019-02-06] MEDS: ATORVASTATIN 40 MG TAB PO (21:39)
[2019-02-06] MEDS: DONEPEZIL 5 MG TAB PO (21:40)
[2019-02-07 00:49] LABS: ADD UMIC YES; UR ASCORBIC ACID NEGATIVE (NEGATIVE); UR BILIRUBIN (Dip) NEGATIVE (NEGATIVE); UR BLOOD (Dip) 1+ mg/dL (NEGATIVE); UR CLARITY SLIGHTLY CLOUDY (CLEAR); UR COLOR YELLOW (YELLOW); UR GLUCOSE (Dip) NEGATIVE (NEGATIVE); UR KETONES (Dip) NEGATIVE (NEGATIVE); UR LEUKOCYTE ESTERASE (Dip) NEGATIVE Leu/ul (NEGATIVE); UR MUCUS FEW /HPF (NONE SEEN); UR NITRITE (Dip) NEGATIVE (NEGATIVE); UR RBC 0 /HPF (0-5); UR SPECIFIC GRAVITY (Dip) 1.015 (1.003-1.030); UR SQUAMOUS EPITHELIAL CELL FEW /HPF (FEW); UR TOTAL PROTEIN (Dip) 2+ mg/dl (NEGATIVE); UR UROBILINOGEN (Dip) NEGATIVE (NEGATIVE); UR WBC 2 /HPF (0-5)
[2019-02-07 01:55] LABS: TROPONIN-I < 0.012 ng/ml (0.000-0.120)
[2019-02-07] MEDS: DICYCLOMINE 10 MG CAP PO ×3 (06:42→21:55)
[2019-02-07] MEDS: glipiZIDE 5 MG TAB PO (06:43)
[2019-02-07] MEDS: INSULIN ASPART [NOVOLOG] 3 ML PEN SC ×3 (08:09→17:26)
[2019-02-07] MEDS: PREDNISOLONE ACET 1% 5 ML OPH RIGHT EYE ×4 (08:15→21:56)
[2019-02-07 08:41] LABS: TROPONIN-I 0.015 ng/ml (0.000-0.120)
[2019-02-07 11:16] LABS: ANION GAP 14 (5-13); BLOOD UREA NITROGEN 51 mg/dl (7-20); CALCIUM 9.6 mg/dl (8.4-10.2); CARBON DIOXIDE 24 mmol/L (21-31); CHLORIDE 101 mmol/L (97-110); Estimated GFR 9 mL/min (>60); GLUCOSE 128 mg/dl (70-220); POTASSIUM 4.2 mmol/L (3.5-5.1); SODIUM 139 mmol/L (135-144)
[2019-02-07] MEDS: valACYclovir 500 MG TAB PO ×3 (13:00→21:55)
[2019-02-07] MEDS: LISINOPRIL 10 MG TAB PO (14:07)
[2019-02-07] MEDS: ASPIRIN (EC) 81 MG TAB PO (14:07)
[2019-02-07] MEDS: ACETAMINOPHEN 325 MG TAB PO (17:53)
[2019-02-07] MEDS: DONEPEZIL 5 MG TAB PO (21:54)
[2019-02-07] MEDS: ATORVASTATIN 40 MG TAB PO (21:55)
[2019-02-07] MEDS: INSULIN GLARGINE [LANTus] (100 UNITS/ML) SYG SC (22:01)
[2019-02-08] MEDS: DICYCLOMINE 10 MG CAP PO ×3 (06:09→23:19)
[2019-02-08 06:41] LABS: ANION GAP 16 (5-13); BLOOD UREA NITROGEN 56 mg/dl (7-20); CALCIUM 10.3 mg/dl (8.4-10.2); CARBON DIOXIDE 26 mmol/L (21-31); CHLORIDE 98 mmol/L (97-110); CREATININE 8.69 mg/dl (0.61-1.24); Estimated GFR 7 mL/min (>60); GLUCOSE 161 mg/dl (70-220); POTASSIUM 5.3 mmol/L (3.5-5.1); SODIUM 140 mmol/L (135-144)
[2019-02-08] MEDS: valACYclovir 500 MG TAB PO ×3 (08:17→21:00)
[2019-02-08] MEDS: glipiZIDE 5 MG TAB PO (08:17)
[2019-02-08] MEDS: PREDNISOLONE ACET 1% 5 ML OPH RIGHT EYE ×4 (08:17→21:33)
[2019-02-08] MEDS: ASPIRIN (EC) 81 MG TAB PO (08:17)
[2019-02-08] MEDS: LISINOPRIL 10 MG TAB PO (08:18)
[2019-02-08] MEDS: INSULIN ASPART [NOVOLOG] 3 ML PEN SC ×3 (08:23→17:43)
[2019-02-08] MEDS: DONEPEZIL 5 MG TAB PO (21:33)
[2019-02-08] MEDS: ATORVASTATIN 40 MG TAB PO (21:33)
[2019-02-08] MEDS: INSULIN GLARGINE [LANTus] (100 UNITS/ML) SYG SC (21:35)
[2019-02-09] MEDS: DICYCLOMINE 10 MG CAP PO ×3 (05:33→21:18)
[2019-02-09 06:24] LABS: ADD MAN DIFF? NO
[2019-02-09 06:28] LABS: WHITE BLOOD COUNT 9.1 10^3/ul (4.8-10.8)
[2019-02-09 06:28] LABS: BASOPHIL # 0.1 10^3/ul (0.0-0.1); BASOPHILS % 0.7 % (0.0-2.0); EOSINOPHILS # 0.3 10^3/ul (0.0-0.5); EOSINOPHILS % 2.8 % (0.0-7.0); HEMATOCRIT 40.5 % (42.0-52.0); HEMOGLOBIN 13.1 g/dl (14.0-18.0); MEAN CORPUSCULAR HGB CONC 32.3 g/dl (32.0-37.0); MEAN CORPUSCULAR VOLUME 80.4 fl (82.0-101.0); MEAN PLATELET VOLUME 9.9 fl (7.4-10.4); MONOCYTE # 0.9 10^3/ul (0.3-0.9); MONOCYTES % 9.4 % (0.0-11.0); NEUTROPHIL # 5.9 10^3/ul (1.6-7.5); NEUTROPHILS % 64.9 % (39.0-77.0); PLATELET COUNT 249 10^3/UL (140-415); RED BLOOD COUNT 5.04 10^6/ul (4.70-6.10)
[2019-02-09 06:55] LABS: ANION GAP 19 (5-13); BLOOD UREA NITROGEN 80 mg/dl (7-20); CALCIUM 10.1 mg/dl (8.4-10.2); CARBON DIOXIDE 22 mmol/L (21-31); CHLORIDE 96 mmol/L (97-110); CREATININE 10.84 mg/dl (0.61-1.24); Estimated GFR 6 mL/min (>60); GLUCOSE 94 mg/dl (70-220); POTASSIUM 5.1 mmol/L (3.5-5.1); SODIUM 137 mmol/L (135-144)
[2019-02-09] MEDS: glipiZIDE 5 MG TAB PO (07:37)
[2019-02-09] MEDS: INSULIN ASPART [NOVOLOG] 3 ML PEN SC ×3 (07:44→17:01)
[2019-02-09] MEDS: LISINOPRIL 5 MG TAB PO (08:02)
[2019-02-09] MEDS: PREDNISOLONE ACET 1% 5 ML OPH RIGHT EYE ×4 (08:17→21:19)
[2019-02-09] MEDS: ASPIRIN (EC) 81 MG TAB PO (08:19)
[2019-02-09] MEDS: valACYclovir 500 MG TAB PO ×4 (09:00→21:18)
[2019-02-09] MEDS: ATORVASTATIN 40 MG TAB PO (21:18)
[2019-02-09] MEDS: DONEPEZIL 5 MG TAB PO (21:18)
[2019-02-09] MEDS: INSULIN GLARGINE [LANTus] (100 UNITS/ML) SYG SC (21:31)
[2019-02-09] MEDS: AL HYDROX/MG HYDROX/SIMETH 30 ML CUP PO (22:26)
[2019-02-10] MEDS: DICYCLOMINE 10 MG CAP PO ×3 (05:11→21:14)
[2019-02-10] MEDS: glipiZIDE 5 MG TAB PO (07:25)
[2019-02-10] MEDS: INSULIN ASPART [NOVOLOG] 3 ML PEN SC ×4 (07:34→21:24)
[2019-02-10] MEDS: LISINOPRIL 5 MG TAB PO (08:09)
[2019-02-10] MEDS: ASPIRIN (EC) 81 MG TAB PO (08:17)
[2019-02-10] MEDS: PREDNISOLONE ACET 1% 5 ML OPH RIGHT EYE ×4 (08:17→21:14)
[2019-02-10] MEDS: PANTOPRAZOLE (EC) 40 MG TAB PO (09:55)
[2019-02-10] MEDS ORDERED: ONDANSETRON 4 MG TAB PO (10:00)
[2019-02-10 11:26] LABS: ADD MAN DIFF? NO
[2019-02-10 11:32] LABS: BASOPHIL # 0.1 10^3/ul (0.0-0.1); BASOPHILS % 0.7 % (0.0-2.0); EOSINOPHILS # 0.1 10^3/ul (0.0-0.5); EOSINOPHILS % 1.5 % (0.0-7.0); HEMATOCRIT 39.5 % (42.0-52.0); HEMOGLOBIN 13.1 g/dl (14.0-18.0); LYMPHOCYTES # 1.9 10^3/ul (0.8-2.9); LYMPHOCYTES % 21.6 % (15.0-51.0); MEAN CORPUSCULAR HEMOGLOBIN 26.1 pg (29.0-33.0); MEAN CORPUSCULAR HGB CONC 33.2 g/dl (32.0-37.0); MEAN CORPUSCULAR VOLUME 78.7 fl (82.0-101.0); MEAN PLATELET VOLUME 9.8 fl (7.4-10.4); MONOCYTE # 0.6 10^3/ul (0.3-0.9); NEUTROPHIL # 5.9 10^3/ul (1.6-7.5); PLATELET COUNT 292 10^3/UL (140-415); RED BLOOD COUNT 5.02 10^6/ul (4.70-6.10); RED CELL DISTRIBUTION WIDTH 14.8 % (11.5-14.5)
[2019-02-10 11:32] LABS: WHITE BLOOD COUNT 8.6 10^3/ul (4.8-10.8)
[2019-02-10] MEDS: SOD CHLORIDE 0.9% 1,000 ML IV (11:37)
[2019-02-10 11:53] LABS: ANION GAP 15 (5-13); BLOOD UREA NITROGEN 68 mg/dl (7-20); CALCIUM 9.8 mg/dl (8.4-10.2); CARBON DIOXIDE 26 mmol/L (21-31); CHLORIDE 96 mmol/L (97-110); CREATININE 9.29 mg/dl (0.61-1.24); Estimated GFR 7 mL/min (>60); GLUCOSE 216 mg/dl (70-220); POTASSIUM 5.2 mmol/L (3.5-5.1); SODIUM 137 mmol/L (135-144)
[2019-02-10] MEDS: DONEPEZIL 5 MG TAB PO (21:14)
[2019-02-10] MEDS: ATORVASTATIN 40 MG TAB PO (21:14)
[2019-02-10] MEDS: INSULIN GLARGINE [LANTus] (100 UNITS/ML) SYG SC (21:24)
[2019-02-11] MEDS: GUAIFENESIN/DM 5ML CUP PO ×2 (01:47→22:25)
[2019-02-11] MEDS: ACCU-CHEK XX (01:53)
[2019-02-11] MEDS: PANTOPRAZOLE (EC) 40 MG TAB PO (05:11)
[2019-02-11] MEDS: SOD CHLORIDE 0.9% 1,000 ML IV ×2 (05:11→09:02)
[2019-02-11] MEDS: DICYCLOMINE 10 MG CAP PO ×3 (05:11→22:25)
[2019-02-11 06:11] LABS: ADD MAN DIFF? NO
[2019-02-11 06:26] LABS: BASOPHIL # 0.1 10^3/ul (0.0-0.1); BASOPHILS % 0.7 % (0.0-2.0); EOSINOPHILS # 0.2 10^3/ul (0.0-0.5); EOSINOPHILS % 2.4 % (0.0-7.0); HEMATOCRIT 38.5 % (42.0-52.0); HEMOGLOBIN 12.4 g/dl (14.0-18.0); LYMPHOCYTES # 1.8 10^3/ul (0.8-2.9); LYMPHOCYTES % 23.8 % (15.0-51.0); MEAN CORPUSCULAR HEMOGLOBIN 25.7 pg (29.0-33.0); MEAN CORPUSCULAR HGB CONC 32.2 g/dl (32.0-37.0); MEAN CORPUSCULAR VOLUME 79.9 fl (82.0-101.0); MEAN PLATELET VOLUME 10.1 fl (7.4-10.4); MONOCYTE # 0.6 10^3/ul (0.3-0.9); MONOCYTES % 7.5 % (0.0-11.0); NEUTROPHIL # 4.9 10^3/ul (1.6-7.5); NEUTROPHILS % 65.3 % (39.0-77.0); PLATELET COUNT 277 10^3/UL (140-415); RED BLOOD COUNT 4.82 10^6/ul (4.70-6.10)
[2019-02-11 06:26] LABS: WHITE BLOOD COUNT 7.5 10^3/ul (4.8-10.8)
[2019-02-11 06:47] LABS: ANION GAP 18 (5-13); BLOOD UREA NITROGEN 75 mg/dl (7-20); CALCIUM 9.7 mg/dl (8.4-10.2); CARBON DIOXIDE 24 mmol/L (21-31); CHLORIDE 97 mmol/L (97-110); CREATININE 10.49 mg/dl (0.61-1.24); Estimated GFR 6 mL/min (>60); GLUCOSE 123 mg/dl (70-220); POTASSIUM 5.2 mmol/L (3.5-5.1); SODIUM 139 mmol/L (135-144)
[2019-02-11] MEDS: INSULIN ASPART [NOVOLOG] 3 ML PEN SC ×4 (07:55→20:54)
[2019-02-11] MEDS: ASPIRIN (EC) 81 MG TAB PO (09:01)
[2019-02-11] MEDS: glipiZIDE 5 MG TAB PO (09:01)
[2019-02-11] MEDS: PREDNISOLONE ACET 1% 5 ML OPH RIGHT EYE ×4 (09:01→20:38)
[2019-02-11] MEDS: LISINOPRIL 5 MG TAB PO (09:02)
[2019-02-11] MEDS: NA POLYST SULFON 15 GM/60 ML BTL PO (12:54)
[2019-02-11] MEDS: DONEPEZIL 5 MG TAB PO (20:38)
[2019-02-11] MEDS: ATORVASTATIN 40 MG TAB PO (20:38)
[2019-02-11] MEDS: INSULIN GLARGINE [LANTus] (100 UNITS/ML) SYG SC (20:53)
[2019-02-12] MEDS: ACCU-CHEK XX (02:00)
[2019-02-12] MEDS: SOD CHLORIDE 0.9% 1,000 ML IV (03:30)
[2019-02-12] MEDS: PANTOPRAZOLE (EC) 40 MG TAB PO (06:04)
[2019-02-12] MEDS: DICYCLOMINE 10 MG CAP PO ×2 (06:04→13:48)
[2019-02-12] MEDS: GUAIFENESIN/DM 5ML CUP PO (06:07)
[2019-02-12] MEDS: glipiZIDE 5 MG TAB PO (06:07)
[2019-02-12 07:12] LABS: ANION GAP 15 (5-13); BLOOD UREA NITROGEN 82 mg/dl (7-20); CALCIUM 9.3 mg/dl (8.4-10.2); CARBON DIOXIDE 23 mmol/L (21-31); CHLORIDE 100 mmol/L (97-110); CREATININE 12.21 mg/dl (0.61-1.24); Estimated GFR 5 mL/min (>60); GLUCOSE 132 mg/dl (70-220); POTASSIUM 4.9 mmol/L (3.5-5.1); SODIUM 138 mmol/L (135-144)
[2019-02-12] MEDS: INSULIN ASPART [NOVOLOG] 3 ML PEN SC ×2 (07:55→11:50)
[2019-02-12] MEDS: PREDNISOLONE ACET 1% 5 ML OPH RIGHT EYE ×3 (09:00→13:58)
[2019-02-12] MEDS: LISINOPRIL 5 MG TAB PO (12:25)
[2019-02-12] MEDS: ASPIRIN (EC) 81 MG TAB PO (13:49)
[2019-02-12] MEDS ORDERED: INSULIN GLARGINE [LANTus] (100 UNITS/ML) SYG SC (21:00)
[2019-02-13] MEDS ORDERED: INSULIN ASPART [NOVOLOG] 3 ML PEN SC (07:55)
== END 2019-02-12 14:27 | disposition home or self-care (01) | DRG 91 ==
LOC: TEL 02-03 02:22 → E/R 03:16 → TEL 10:44
PROC: 5A1D70Z Performance of Urinary Filtration, Intermittent, Less than 6 Hours Per Day (ICD-10-PCS; principal; 2019-02-04)
DX: G92 Toxic encephalopathy (principal); N18.6 End stage renal disease; I50.33 Acute on chronic diastolic (congestive) heart failure; I13.2 Hypertensive heart and chronic kidney disease with heart failure and with stage 5 chronic kidney disease, or end stage renal disease; K29.70 Gastritis, unspecified, without bleeding; D63.8 Anemia in other chronic diseases classified elsewhere; E11.22 Type 2 diabetes mellitus with diabetic chronic kidney disease; I25.2 Old myocardial infarction; R55 Syncope and collapse; E87.5 Hyperkalemia; I25.10 Atherosclerotic heart disease of native coronary artery without angina pectoris; E03.9 Hypothyroidism, unspecified; E78.00 Pure hypercholesterolemia, unspecified; E11.65 Type 2 diabetes mellitus with hyperglycemia; I95.9 Hypotension, unspecified; Z85.46 Personal history of malignant neoplasm of prostate; Z79.4 Long term (current) use of insulin; Z87.891 Personal history of nicotine dependence; Z86.73 Personal history of transient ischemic attack (TIA), and cerebral infarction without residual deficits; Z99.2 Dependence on renal dialysis; Z95.0 Presence of cardiac pacemaker
CPT/HCPCS: 70450; 71045; 80048; 80053; 80061; 81001; 82550; 82553; 82962; 83735; 84100; 84484; 85025; 85610; 85730; 87340; 90935; 92610; 93005; 96374; 97161; 99285-25; G0378

== ENCOUNTER 2019-04-04 08:35 | Emergency (ER) | payer MEDICARE, MEDICAID | END 2019-04-04 12:39 | disposition home or self-care (01) | LOC: E/R 08:35 | DX: E13.319 Other specified diabetes mellitus with unspecified diabetic retinopathy without macular edema (principal); I10 Essential (primary) hypertension; F17.210 Nicotine dependence, cigarettes, uncomplicated; Z85.46 Personal history of malignant neoplasm of prostate; Z79.4 Long term (current) use of insulin; Z95.0 Presence of cardiac pacemaker; Z86.73 Personal history of transient ischemic attack (TIA), and cerebral infarction without residual deficits | CPT/HCPCS: 76536; 99284-25 ==